=== PATIENT | female | born 1935 | race Caucasian/White ===

== ENCOUNTER 2019-01-08 02:36 | Outpatient (CLI) | payer MEDICARE, OTHER, SELFPAY ==
[2019-01-08 09:11] LABS: HCT 42.4 % (36.0-46.0); HGB 14.5 g/dL (12.0-15.5); Mean Corp. HGB Concentration 34.2 g/dL (32.0-36.0); Mean Corpuscular Hemoglobin 32.3 pg (27.0-33.0); Mean Corpuscular Volume 94.4 fL (80-95); Mean Platelet Volume 10.2 fL (8.0-11.0); Platelet Count 221 x1000/uL (130-400); RBC 4.49 m/cumm (4.00-5.20); RBC Distribution Width 13.1 % (11.7-14.6); White Blood Cell Count 5.66 k/cumm (4.4-10.8)
[2019-01-08 10:17] LABS: ALT 35 U/L (12-78); AST 30 U/L (15-37); Alkaline Phosphatase 66 U/L (46-116); Anion Gap 7.8 mmol/L (3-11); BUN 15 mg/dL (7-18); Bilirubin, Total 0.5 mg/dL (0.2-1.0); CO2 30.2 mmol/L (21.0-32.0); CREATININE 0.81 mg/dL (0.55-1.02); Calcium 9.5 mg/dL (8.5-10.1); Chloride 99 mmol/L (98-107); Cholesterol 231 mg/dL (50-200); Glucose 99 mg/dL (70-100); HDL Cholesterol 62 mg/dL (40-60); LDL CHOLESTEROL 134 mg/dL (<100); Potassium 4.3 mmol/L (3.5-5.1); Sodium 137 mmol/L (136-145); Total Protein 6.6 g/dL (6.4-8.2); Triglyceride 203 mg/dL (30-150)
== END 2019-01-08 02:56 ==
PROVIDERS: PCP Student in an Organized Health Care Education/Training Program; Visit Provider Nurse Practitioner Gerontology
DX: E78.5 Hyperlipidemia, unspecified (principal); I10 Essential (primary) hypertension; K63.5 Polyp of colon
CPT/HCPCS: 36415; 80053; 80061; 83721; 85027

== ENCOUNTER 2019-10-16 15:06 | Emergency (ER) | payer MEDICARE, OTHER, SELFPAY ==
[2019-10-16 15:10] VITALS: BP 167/62; PULSE 94; RESP 18; TEMP 36.6; O2SAT 99
--- NOTE | 2019-10-16 15:15 | W.ED.GENAD ---
Discharge Plan Disposition Patient Disposition: HOME Condition: Good Discharge Details Chief Complaint: Abd Prob Clinical Impression: Abdominal pain Primary Care Provider: Jasmine Lorenzana ED Provider: Jostin Mercado Home Meds and New Rx's Prescriptions: New sucralfate [Carafate] 1 gram tablet 1 gm PO QACHS Qty: 60 RF: 0 No Action lisinopril 20 mg tablet 20 mg PO DAILY Qty: 90 RF: 4 hydrochlorothiazide 25 mg tablet 25 mg PO DAILY Qty: 90 RF: 4 fluticasone propionate 50 mcg/actuation spray,suspension 1 - 2 spray NS DAILY PRN (Reason: nasal congestion) Qty: 1 RF: 0 multivitamin [Daily Multi-Vitamin] 1 EACH tablet 1 ea PO DAILY RF: 0 calcium carbonate-vitamin D3 [Calcium 600 with Vitamin D3] 1 EACH tablet 1 ea PO DAILY RF: 0 garlic 1,000 MG capsule 500 mg PO DAILY RF: 0 atorvastatin 20 mg tablet 20 mg PO DAILY Qty: 90 RF: 3 Lactobacillus rhamnosus GG 1 EACH capsule 1 ea PO DAILY RF: 0 Discharge Instructions Instructions: Abdominal Pain (ED) Additional Instructions: At this time there is no evidence of diverticulitis, gallbladder pathology or kidney pathology. You may have had a kidney stone that passed. You may also be suffering from mild stomach ulcer. Please take the Carafate as directed. Please avoid Aleve, and take Tylenol instead. You can take 500 mg every 6 hours up to a maximum dose of 1000 mg every 6 hours. If you notice any worsening of your symptoms, or any new symptoms such as vomiting, diarrhea, fever, chills, shortness of breath, chest pain, numbness, weakness, or fainting , please return immediately to the emergency department for reevaluation. Please follow up with your primary care provider as soon as possible for reassessment and reevaluation. As always, it was a pleasure participating in your medical care today. Referrals: Jasmine Lorenzana, RUSTY [Primary Care Provider] - Medical Decision Making This is a pleasant 84-year-old female who presents for left lower quadrant abdominal pain. Is been present for the last 6 months. It is sharp in nature. It comes and goes. No associated melena, hematochezia or acholic stool. She has had no vomiting and she is eating well. Physical exam demonstrates minimal left lower quadrant abdominal tenderness. No signs of an acute surgical abdomen at this time. Vital signs are stable. We will get a CT scan for further assessment, get basic labs and reassess. 5:47 PM Laboratory work-up is returned unremarkable, no white count, no left shift, electrolytes normal, renal function stable, lactate bilirubin and transaminases normal. Urinalysis shows evidence of a small amount of RBCs, no evidence of infection though. CT scan shows no evidence of diverticulitis, or renal stone. No evidence of ureteral stone either. No evidence of significant hydronephrosis. This may reflect a passed kidney stone. CT scan did show evidence of a small lesion in the liver which will need to be reimaged in the future. We will place this on the patient's problem list. Additionally there was evidence of questionable pericholecystic fat stranding which is inconsistent with acute cholecystitis per laboratory and clinical evaluation however out of an abundance of precaution ultrasound was ordered and demonstrates no evidence of acute process or cholecystitis. This time the patient feels notably comfortable. Will discharge home with recommendations for Tylenol and Carafate. Discussed the importance of close follow-up. I have extensively reviewed the treatment plan and discharge instructions with the patient and their family. I have addressed all patient concerns at this time. The patient and family was made aware of what symptoms to monitor for that would warrant a return to the emergency department. Discussed the plan with the patient and family, they demonstrate verbal understanding and agreement with our assessment and plan at this time. FINDINGS: Liver: Poorly defined 1.7 cm low-density lesion in the right hepatic lobe. Gallbladder and bile ducts: Tiny calcified gallstone and a decompressed gallbladder. Mild pericholecystic fat stranding. Pancreas: Unremarkable. No ductal dilation. Spleen: Unremarkable. Adrenals: Unremarkable. Kidneys and ureters: No hydronephrosis or stones. Stomach and bowel: Small bowel loops are unremarkable. Scattered colonic diverticulosis without evidence of diverticulitis. Appendix: No evidence of appendicitis. Intraperitoneal space: No pneumoperitoneum. No significant fluid collection. Vasculature: Atherosclerotic calcifications of the aorta and major branches. Lymph nodes: No enlarged lymph nodes. Bladder: Unremarkable. Reproductive: Unremarkable as visualized. Bones/joints: Multilevel degenerative changes of the visualized spine. No acute osseous lesion or fracture. Soft tissues: Small fat containing left inguinal hernia. IMPRESSION: 1. Scattered colonic diverticulosis without evidence of diverticulitis. 2. Tiny calcified gallstone and a decompressed gallbladder. Mild pericholecystic fat stranding. Correlate clinically with LFTs to exclude possibility of acute cholecystitis. 3. Scattered colonic diverticulosis without evidence of diverticulitis. 4. Poorly defined 1.7 cm low-density lesion in the right hepatic lobe. Recommend followup nonemergent dedicated CT or MRI abdomen using liver mass protocol. 5. Other chronic findings, as above. Thank you for allowing us to participate in the care of your patient. Dictated and Authenticated by: Candelario Whitfield MD 10/16/2019 4:44 PM Eastern Time ([place] & [place]) FINDINGS: Liver: Visualized portions of the liver are unremarkable. Gallbladder: No gallstones visualized on this examination. No gallbladder wall thickening. Sonographic Nowak's sign is negative. Common bile duct: The common bile duct measures up to 0.3 cm in diameter. Pancreas: Not visualized. Right kidney: Not visualized. IMPRESSION: No acute findings. Thank you for allowing us to participate in the care of your patient. Dictated and Authenticated by: Candelario Whitfield MD 10/16/2019 5:24 PM Eastern Time ([place] & [place]) HPI General Date/Time Provider Initiated Documentation: 10/16/19 15:07. HPI Narrative: This is a pleasant 84-year-old female who presents today for mild abdominal pain. Patient states that for the last 6 months she has had on and off pain present in the left lower quadrant. She denies any nausea or vomiting. She does occasionally have some loose stools, but this is very mild. She describes the pain is sharp when it does occur. She has no associated urinary complaints. She denies any vomiting. She denies any hematochezia, melena, acholic stool. No other complaints at this time. No other modifying factors. Related Data Home Medications Medication Instructions Recorded Confirmed Lactobacillus rhamnosus GG 1 ea PO DAILY 01/28/13 10/16/19 calcium carbonate-vitamin D3 1 ea PO DAILY 11/25/13 10/16/19 [Calcium 600 with Vitamin D3] multivitamin [Daily Multi-Vitamin] 1 ea PO DAILY 11/25/13 10/16/19 garlic 500 mg PO DAILY 08/27/14 10/16/19 fluticasone propionate 50 1 - 2 spray NS DAILY PRN #1 unit 12/06/18 10/16/19 mcg/actuation nasal spray,suspension hydrochlorothiazide 25 mg tablet 25 mg PO DAILY #90 tab-cap 01/17/19 10/16/19 lisinopril 20 mg tablet 20 mg PO DAILY #90 tab-cap 01/17/19 10/16/19 atorvastatin 20 mg tablet 20 mg PO DAILY #90 tab 01/21/19 10/16/19 sucralfate [Carafate] 1 gm PO QACHS #60 tab 10/16/19 Previous Rx's Medication Instructions Recorded fluticasone propionate 50 1 - 2 spray NS DAILY PRN #1 unit 12/06/18 mcg/actuation nasal spray,suspension hydrochlorothiazide 25 mg tablet 25 mg PO DAILY #90 tab-cap 01/17/19 lisinopril 20 mg tablet 20 mg PO DAILY #90 tab-cap 01/17/19 atorvastatin 20 mg tablet 20 mg PO DAILY #90 tab 01/21/19 sucralfate [Carafate] 1 gm PO QACHS #60 tab 10/16/19 Allergies Allergy/AdvReac Type Severity Reaction Status Date / Time Sulfa (Sulfonamide Allergy Severe RASH ALL Verified 10/16/19 15:16 Antibiotics) OVER BODY General Stated Complaint: Abd Prob KIRSTEN: 3 Review of Systems All systems reviewed & are unremarkable except as noted in HPI and below PFSH Social History (Updated 01/17/19 @ 08:33 by Jane Zelaya LPN) Smoking/Tobacco Use Status: Never Alcohol Intake: never Drug use: Never Substance use type: does not use Household members: spouse Housing: house Number of Children: 0 current occupation: [employer] Pets and animals: No What type of physical activity do you participate in: walking Duration: 45-60 minutes/day Frequency: daily Summer/Islam: Lutheran Special summer needs: No Working smoke detector in home: Yes Fire extinguisher in home: Yes Carbon monox detector in home: Yes Do you feel safe at home: Yes Do you feel safe in your relationship?: Yes Exam Narrative Exam Narrative: 1.Const: Well-nourished, Well-developed, appearing stated age 2.Eyes: PERRL, no conjunctival injection, and symmetrical lids. 3.ENT: Atraumatic external nose and ears. Moist MM. Neck: Symmetric, trachea midline, No thyromegaly. 4.CVS: +S1/S2, No murmurs or gallops. Peripheral pulses 2+ and equal in all extremities. Brisk capillary refill in all extremities. 5.RESP: Unlabored respiratory effort. Clear to auscultation bilaterally. No wheezes rales or rhonchi 6.GI: Soft, Nondistended, No hepatosplenomegaly. No guarding or rebound. Questionable mild tenderness in the left lower quadrant of the abdomen. No pain in the right lower quadrant. No evidence of an acute surgical abdomen. 7.MSK: Normocephalic/Atraumatic, Extremities w/o deformity or ttp No cyanosis or clubbing, Normal movement of all extremities 8.Skin: Warm, Dry. No rashes or lesions. 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 Sensation grossly intact, no focal neurologic deficits. 10.Psych: (AAO) x3. Appropriate mood and affect Course Vital Signs Vital signs: Vital Signs Temperature 36.6 C 10/16/19 15:10 Pulse 94 H 10/16/19 15:10 Respiratory Rate 18 10/16/19 15:10 Blood Pressure 167/62 H 10/16/19 15:10 Pulse Oximetry 99 10/16/19 15:10 Temperature 36.6 C 10/16/19 15:10 Temperature Source Skin 10/16/19 15:10 Pulse 94 H 10/16/19 15:10 Respiratory Rate 18 10/16/19 15:10 Blood Pressure 167/62 H 10/16/19 15:10 Blood Pressure Position Sitting 10/16/19 15:10 Pulse Oximetry 99 10/16/19 15:10 Oxygen Delivery Method Room Air 10/16/19 15:10 Oxygen Flow Rate 0 10/16/19 15:10 Pain Level 8 10/16/19 15:10
[2019-10-16] MEDS: Normal Saline 500 ML IV (15:37)
[2019-10-16 15:58] LABS: Abs Immature Grans 0.02 k/cumm (0.0-0.09); Absolute Basophil Count 0.01 k/cumm (0.0-0.2); Absolute Eosinophil Count 0.14 k/cumm (0.0-0.7); Absolute Lymphocyte Count 1.19 k/cumm (1.2-3.4); Absolute Monocyte Count 0.48 k/cumm (0.11-0.7); Absolute Neutrophil Count 6.18 k/cumm (1.2-6.7); Basophils % 0.1; Eosinophils % 1.7; HCT 37.3 % (36.0-46.0); Immature Grans % 0.2; Lymphocytes % 14.8; Mean Corp. HGB Concentration 32.2 g/dL (32.0-36.0); Mean Corpuscular Hemoglobin 29.4 pg (27.0-33.0); Mean Corpuscular Volume 91.4 fL (80-95); Mean Platelet Volume 9.5 fL (8.0-11.0); Neutrophils % 77.2; Platelet Count 343 x1000/uL (130-400); RBC 4.08 m/cumm (4.00-5.20); RBC Distribution Width 13.2 % (11.7-14.6); White Blood Cell Count 8.02 k/cumm (4.4-10.8)
[2019-10-16 16:02] LABS: ALT 27 U/L (14-59); AST 26 U/L (15-37); Albumin 2.9 g/dL (3.4-5.0); Alkaline Phosphatase 89 U/L (46-116); Anion Gap 9.3 mmol/L (3-11); BUN 14 mg/dL (7-18); Bilirubin, Total 0.3 mg/dL (0.2-1.0); CO2 27.7 mmol/L (21.0-32.0); CREATININE 0.94 mg/dL (0.55-1.02); Calcium 8.8 mg/dL (8.5-10.1); Chloride 97 mmol/L (98-107); Estimated GFR 57.01 (mL/min/1.73m2); Glucose 104 mg/dL (74-106); Potassium 3.8 mmol/L (3.5-5.1); Sodium 134 mmol/L (136-145); Total Protein 6.3 g/dL (6.4-8.2)
--- NOTE | 2019-10-16 16:09 | DI.CT_ITS ---
EXAM: CT ABDOMEN PELVIS WO CLINICAL HISTORY: LLQ abdominal pain, r/o diverticulitis TECHNIQUE: Imaging Protocol: Axial computed tomography images with coronal and sagittal reformatted images were created and reviewed. COMPARISON: No exams were available for comparison FINDINGS: ABDOMEN: Lung Bases: Dependent atelectatic changes are seen in the lung bases. Liver: Normal density. There is an ill-defined 1.7 centimeter hypodense lesion in the posterior segme nt of the right lobe of the liver. Gallbladder and biliary tract: Cholelithiasis. The gallbladder is contracted. Mild stranding is see n in the surrounding soft tissues. Pancreas: Normal density, no abnormal calcifications or inflammatory process. Spleen: Normal. Kidneys: Normal size, contour and axis. No radiodense stones or obstructive uropathy. No masses seen. Adrenal glands: No masses seen. Lymph nodes: Within normal limits. Abdominal Aorta: Atherosclerosis. No evidence of aneurysm. PELVIS: Bladder: Symmetric distention, no gross wall thickening. There are 2 calcifications seen in the regio n of the right uterovesical junction within the urinary bladder. These may represent 2 passed stones . There is also question of a soft tissue nodule in the region of the right ureteral vesicular junct ion in the urinary bladder. Bowel: There is diverticulosis of the colon but no evidence of acute diverticulitis. There is a norm al appendix present. There is a small to moderate amount of retained stool throughout the colon. Th ere is no evidence of bowel obstruction. Peritoneal cavity: No ascites, collection or mesenteric inflammatory response. Reproductive organs: Within normal limits. Bones: Degenerative changes are seen in the spine. IMPRESSION: 1. Cholelithiasis. Mild pericholecystic fat stranding. Please correlate with clinical findings to e xclude possibility of acute cholecystitis. 2. Colonic diverticulosis but no evidence of acute diverticulitis. 3. Tiny calcifications in the urinary bladder which may represent bladder stones. No hydronephrosis. 4. Poorly defined 1.7 centimeter low-density lesion in the right lobe of the liver. Dedicated CT sca n or MRI of the abdomen is recommended for follow-up. 5. Question of a soft tissue mass in the right aspect of the urinary bladder. Follow-up as clinicall y appropriate. DATA REPOSITORY: All CT scans at this facility are submitted to the National Radiology Data Registry (NRDR) Dose Index Registry (DIR) with the [employer] (ACR). RADIATION OPTIMIZATION: All CT scans at this facility use at least one of these dose optimization te chniques: automated exposure control; mA and/or kV adjustment per patient size (includes targeted exa ms where dose is matched to clinical indication); or iterative reconstruction.
[2019-10-16 16:36] VITALS: BP 154/67; PULSE 78; RESP 19; O2SAT 98
[2019-10-16 16:38] LABS: Bilirubin Negative (Negative); Blood Small (Negative); Clarity Clear (Clear); Glucose Negative (Negative); Ketones Negative (Negative); Leukocyte Esterase Negative (Negative); Nitrite Negative (Negative); Specific Gravity 1.015 (1.005-1.025); Urobilinogen 0.2 EU/dL (Up TO 0.2); pH 8.5 (5-8)
--- NOTE | 2019-10-16 16:46 | DI.VRAD_ITS ---
PROCEDURE INFORMATION: Exam: CT Abdomen And Pelvis Without Contrast Exam date and time: 10/16/2019 3:16 PM Age: 84 years old Clinical history: Other: Llq pain TECHNIQUE: Imaging protocol: Computed tomography of the abdomen and pelvis without contrast. Radiation optimization: All CT scans at this facility use at least one of these dose optimization techniques: automated exposure control; mA and/or kV adjustment per patient size (includes targeted exams where dose is matched to clinical indication); or iterative reconstruction. COMPARISON: No relevant prior studies available. FINDINGS: Liver: Poorly defined 1.7 cm low-density lesion in the right hepatic lobe. Gallbladder and bile ducts: Tiny calcified gallstone and a decompressed gallbladder. Mild pericholecystic fat stranding. Pancreas: Unremarkable. No ductal dilation. Spleen: Unremarkable. Adrenals: Unremarkable. Kidneys and ureters: No hydronephrosis or stones. Stomach and bowel: Small bowel loops are unremarkable. Scattered colonic diverticulosis without evidence of diverticulitis. Appendix: No evidence of appendicitis. Intraperitoneal space: No pneumoperitoneum. No significant fluid collection. Vasculature: Atherosclerotic calcifications of the aorta and major branches. Lymph nodes: No enlarged lymph nodes. Bladder: Unremarkable. Reproductive: Unremarkable as visualized. Bones/joints: Multilevel degenerative changes of the visualized spine. No acute osseous lesion or fracture. Soft tissues: Small fat containing left inguinal hernia. IMPRESSION: 1. Scattered colonic diverticulosis without evidence of diverticulitis. 2. Tiny calcified gallstone and a decompressed gallbladder. Mild pericholecystic fat stranding. Correlate clinically with LFTs to exclude possibility of acute cholecystitis. 3. Scattered colonic diverticulosis without evidence of diverticulitis. 4. Poorly defined 1.7 cm low-density lesion in the right hepatic lobe. Recommend followup nonemergent dedicated CT or MRI abdomen using liver mass protocol. 5. Other chronic findings, as above. Dictated and Authenticated by: Candelario Whitfield MD. Ordering:RUBI Frankel MD
[2019-10-16 16:53] LABS: Bacteria Negative HPF (Negative); Casts Negative LPF (Negative); Crystals Few Amorphous HPF (Negative); Epithelial Cells Negative HPF (Negative); Mucus Trace (Negative); Other Cells Negative (Negative); WBC 0-2 HPF (0-5)
[2019-10-16 16:54] LABS: C & S Indicated? No
--- NOTE | 2019-10-16 16:56 | DI.US_ITS ---
EXAM: US ABDOMEN LIMITED CLINICAL HISTORY: ruq pain, eval GB TECHNIQUE: Ultrasound performed using standard protocol. COMPARISON: CT ABDOMEN PELVIS WO from 10/16/2019 FINDINGS: There is no gallbladder wall thickening, sludge or pericholecystic fluid. No gallstones are identifi ed. There is a negative sonographic Nowak sign. The common duct is within normal limits at 3 rm meters. The visualized portions of the liver are unremarkable. IMPRESSION: Negative gallbladder ultrasound. No previous for comparison.
--- NOTE | 2019-10-16 17:24 | DI.VRAD_ITS ---
PROCEDURE INFORMATION: Exam: US Abdomen Limited, Right Upper Quadrant Exam date and time: 10/16/2019 5:09 PM Age: 84 years old Clinical history: Abdominal pain; Localized; Right upper quadrant (ruq) TECHNIQUE: Imaging protocol: Real-time ultrasound of the abdomen with image documentation. Examination was focused on the right upper quadrant. COMPARISON: CT ABDOMEN PELVIS WO 10/16/2019 4:09 PM FINDINGS: Liver: Visualized portions of the liver are unremarkable. Gallbladder: No gallstones visualized on this examination. No gallbladder wall thickening. Sonographic Nowak's sign is negative. Common bile duct: The common bile duct measures up to 0.3 cm in diameter. Pancreas: Not visualized. Right kidney: Not visualized. IMPRESSION: No acute findings. Dictated and Authenticated by: Candelario Whitfield MD. Ordering:RUBI Frankel MD
[2019-10-16 17:55] VITALS: BP 133/58; PULSE 78; RESP 18; TEMP 36.9; O2SAT 99
== END 2019-10-16 18:07 | disposition home or self-care (01) ==
PROVIDERS: Emergency Provider Student in an Organized Health Care Education/Training Program; PCP Nurse Practitioner
DX: R10.32 Left lower quadrant pain (principal); R93.2 Abnormal findings on diagnostic imaging of liver and biliary tract
CPT/HCPCS: 36415; 80053; 96361; 96374; 99284; 74176; 76705; 81003; 81015; 83605; 85025

== ENCOUNTER 2019-11-07 03:08 | Outpatient (CLI) | payer MEDICARE, OTHER, SELFPAY ==
--- NOTE | 2019-11-07 10:00 | DI.MRI_ITS ---
EXAM: MR ABDOMEN WO/W CLINICAL HISTORY: 1.7 cm liver lesion, ? mass adjacent to bladder, [id number] CT of abdomen. TECHNIQUE: Multiplanar multisequence MRI was performed. COMPARISON: ABDOMEN AND PELVIC CT 10/16/19 FINDINGS: MR examination of the abdomen was performed according to the usual protocol including multiphasic pos t contrast imaging. Recent CT showed a hypodense 17 millimeter posterior segment right hepatic lobe lesion. Noncontrast imaging shows an approximately 21 x 12 x 12 millimeter in diameter lesion in the posterio r segment of the right hepatic lobe. No additional hepatic lesion identified. No splenic lesion see n. The pancreas appears normal. No biliary dilatation seen. No gross retroperitoneal adenopathy. Abdominal aorta is of normal diameter. Incidental 15 millimeter in diameter inferior pole renal cyst noted, otherwise kidneys and adrenals unremarkable in appearance. The posterior right lobe hepatic lesion shows mildly heterogeneous hyperintense signal on T2 weighted imaging and mildly hypointense signal on T1 weighted imaging. Arterial phase contrast enhanced imagi ng shows minimal peripheral enhancement. Venous phase shows slightly more intense peripheral enhancem ent. 3 minutes and 5 minutes delayed imaging show homogeneous lesional enhancement with no washout. Findings as described are nonspecific but could be seen in intrahepatic cholangiocarcinoma or mixed h epatocellular/cholangiocarcinoma. The finding show poor concordance with possible benign etiologies i ncluding atypical hemangioma or focal nodular hyperplasia. Tissue sampling should be considered due t o the possibility of malignancy.
[2019-11-07 10:13] LABS: Calculated LDL 136 mg/dL; Cholesterol 229 mg/dL (<200); HDL Cholesterol 52 mg/dL (40-60); Triglyceride 207 mg/dL (<150)
[2019-11-07] MEDS: Gadoterate meglumine 20 ML VIAL 14 ML IVP (10:18)
[2019-11-07] MEDS: Normal Saline Flush 10 ML SYR IVP (10:19)
== END 2019-11-07 03:28 ==
PROVIDERS: PCP Nurse Practitioner; Visit Provider Nurse Practitioner
DX: K76.89 Other specified diseases of liver (principal); N28.1 Cyst of kidney, acquired; R93.5 Abnormal findings on diagnostic imaging of other abdominal regions, including retroperitoneum; E78.5 Hyperlipidemia, unspecified
CPT/HCPCS: 36415; 74183; 80061

== ENCOUNTER 2020-01-08 10:42 | Outpatient (REF) | payer MEDICARE, OTHER, SELFPAY | END 2020-01-08 11:02 | LOC: LBN 10:42 | PROVIDERS: PCP Nurse Practitioner; Visit Provider Nurse Practitioner | DX: R35.1 Nocturia (principal) | CPT/HCPCS: 87086 ==

== ENCOUNTER → 2020-04-14 10:17 | Outpatient (BNVA) | payer MEDICARE, OTHER, SELFPAY | PROVIDERS: PCP Nurse Practitioner; Referring Provider Nurse Practitioner; Visit Provider Nurse Practitioner Gerontology | DX: R35.0 Frequency of micturition (principal); R35.1 Nocturia; I10 Essential (primary) hypertension | CPT/HCPCS: 81003; 99204; 99215 ==

== ENCOUNTER 2021-02-09 07:32 | Outpatient (CLI) | payer MEDICARE, OTHER, SELFPAY ==
[2021-02-09 11:25] LABS: ALT 29 U/L (14-59); AST 21 U/L (15-37); Albumin 4.2 g/dL (3.4-5.0); Alkaline Phosphatase 56 U/L (46-116); Anion Gap 8.4 mmol/L (3-11); BUN 16 mg/dL (7-18); Bilirubin, Total 0.5 mg/dL (0.2-1.0); CO2 28.6 mmol/L (21.0-32.0); CREATININE 0.9 mg/dL (0.55-1.02); Calcium 9.6 mg/dL (8.5-10.1); Chloride 99 mmol/L (98-107); Glucose 101 mg/dL (74-106); Potassium 4.2 mmol/L (3.5-5.1); Sodium 136 mmol/L (136-145); Total Protein 6.5 g/dL (6.4-8.2)
[2021-02-09 11:42] LABS: Calculated LDL 126 mg/dL (<100); Cholesterol 232 mg/dL (<200); HDL Cholesterol 65 mg/dL (40-60); Triglyceride 207 mg/dL (<150)
== END 2021-02-09 07:33 | disposition home or self-care (01) ==
LOC: LBO 07:43
PROVIDERS: PCP Nurse Practitioner; Visit Provider Nurse Practitioner
DX: E78.5 Hyperlipidemia, unspecified (principal); I10 Essential (primary) hypertension
CPT/HCPCS: 36415; 80053; 80061

== ENCOUNTER 2021-02-10 00:51 | Outpatient (CLI) | payer MEDICARE, OTHER, SELFPAY ==
--- NOTE | 2021-02-10 06:45 | DI.MAMMO_ITS ---
EXAM: MAMMO SCREENING CLINICAL HISTORY: screening,Z12.39 TECHNIQUE: Mammograms were interpreted according to the usual protocol including computer analysis w WT[employer] CAD system, tomosynthesis and C-view imaging. COMPARISON: 2011 through 2017 FINDINGS: The breasts are composed of scattered fibroglandular densities, Breast Density category B. There is motion on the the left MLO view. The patient should return error for a repeat left MLO view at no additional charge. No suspicious masses or suspicious microcalcifications are seen. No skin thickening or abnormal axillary lymph nodes are seen. There has been no significant change from prior exams. IMPRESSION: BI-RADS Category 0 - Assessment Incomplete: Need additional imaging evaluation. The patient should re turn for repeat left MLO view due to motion. Breast Density - Category B, scattered fibroglandular densities. A negative radiographic report should not delay biopsy if a dominant or clinically suspicious mass is present. Up to ten percent of cancers are not identified on mammography. A negative report may reinforce clinical impression. Adenosis and dense breasts may obscure an underlying neoplasm. False positive reports average 6 to 10%. Patient will receive a letter notifying them of these results.
== END 2021-02-10 01:11 ==
PROVIDERS: PCP Nurse Practitioner; Visit Provider Nurse Practitioner
DX: Z12.31 Encounter for screening mammogram for malignant neoplasm of breast (principal)
CPT/HCPCS: 77063; 77067

== ENCOUNTER 2021-02-10 14:13 | Outpatient (CLI) | payer MEDICARE, OTHER, SELFPAY ==
--- NOTE | 2021-02-10 14:00 | RT.EKG_ITS ---
APPROVED REPORT Exam: Resting ECG Patient Location: O HR:78 bpm ECG Measurements Heart Rate 78 AXIS WA 156 P 55 QRSd 91 QRS 32 QT 368 T 41 QTc 419 Conclusion Sinus rhythm...normal P axis, V-rate 60- 99 Ventricular trigeminy...trigeminy string>6 w/ V complexes Probable left atrial enlargement...P >50mS, <-0.10mV V1
== END 2021-02-10 14:14 | disposition home or self-care (01) ==
LOC: DI.KIM 14:14
PROVIDERS: PCP Nurse Practitioner; Visit Provider Nurse Practitioner Family
DX: I49.9 Cardiac arrhythmia, unspecified (principal)
CPT/HCPCS: 93010

== ENCOUNTER 2021-02-15 03:49 | Outpatient (CLI) | payer MEDICARE, OTHER, SELFPAY ==
[2021-02-15 10:02] LABS: TSH (W/Ref FT4) 1.47 uIU/mL (0.36-3.74)
== END 2021-02-15 03:50 | disposition home or self-care (01) ==
LOC: LBO 03:49
PROVIDERS: PCP Nurse Practitioner; Visit Provider Nurse Practitioner
DX: I49.9 Cardiac arrhythmia, unspecified (principal)
CPT/HCPCS: 36415; 84443; 93225

== ENCOUNTER 2021-02-15 04:01 | Outpatient (RCR) | payer MEDICARE, OTHER, SELFPAY ==
--- NOTE | 2021-02-15 15:15 | HOLTER_ITS ---
APPROVED REPORT Exam Type: HOLTER MONITOR APPLICATION Reason for Test: PVC's Patient Location: O Conclusion 48-hour Holter monitor was ordered for premature ventricular contractions Predominant rhythm was sinus with an average heart rate of 79. Minimum was 60, maximum 135 There were very rare isolated ventricular ectopic beats, a total of 88 in 48 hours There were very rare isolated atrial premature beats, 9 in 48 hours. There was one atrial pair There was no atrial fibrillation, no pauses greater than 3 seconds, no high-grade AV block No patient symptoms were reported
== END 2021-03-04 23:59 | disposition home or self-care (01) ==
LOC: RT 04:01
PROVIDERS: PCP Nurse Practitioner; Visit Provider Nurse Practitioner Family
DX: I49.3 Ventricular premature depolarization (principal)
CPT/HCPCS: 93227; 93225; 93226

== ENCOUNTER → 2021-05-19 08:23 | Outpatient (BNVA) | payer MEDICARE, OTHER, SELFPAY | PROVIDERS: PCP Nurse Practitioner; Referring Provider Nurse Practitioner; Visit Provider Nurse Practitioner Gerontology | DX: R35.0 Frequency of micturition (principal); R31.9 Hematuria, unspecified | CPT/HCPCS: 81003; 99214 ==

== ENCOUNTER 2021-05-19 14:46 | Outpatient (REF) | payer MEDICARE, OTHER, SELFPAY | END 2021-05-19 14:47 | disposition home or self-care (01) | LOC: LBN 14:46 | PROVIDERS: PCP Nurse Practitioner; Visit Provider Nurse Practitioner Gerontology | DX: R31.9 Hematuria, unspecified (principal); R35.0 Frequency of micturition | CPT/HCPCS: 87086 ==

== ENCOUNTER → 2021-06-09 08:17 | Outpatient (BNVA) | payer MEDICARE, OTHER, SELFPAY | PROVIDERS: PCP Nurse Practitioner; Visit Provider Nurse Practitioner Gerontology | DX: R35.0 Frequency of micturition (principal); R31.9 Hematuria, unspecified; Z77.22 Contact with and (suspected) exposure to environmental tobacco smoke (acute) (chronic); R39.15 Urgency of urination | CPT/HCPCS: 81003; 99214 ==

== ENCOUNTER 2021-06-14 01:37 | Outpatient (CLI) | payer MEDICARE, OTHER, SELFPAY ==
--- NOTE | 2021-06-14 07:00 | DI.CT_ITS ---
Exam(s) CT ABDOMEN PELVIS WO/W EXAM: CT ABDOMEN PELVIS WO/W TECHNIQUE: Imaging Protocol: Axial computed tomography images with coronal and sagittal reformatted images were created and reviewed CONTRAST MATERIAL: Intravenous: Omnipaque 350 Contrast volume:structured data in ml Contrast route:I V - Oral:yes / no COMPARISON: CT CT ABDOMEN PELVIS WO from 10/16/[address] ABDOMEN PELVIS WO from 10/16/2019 MR MR ABDOMEN WO/W from 11/07/2019 MR MR ABDOMEN WO/W from 11/07/2019 FINDINGS: ABDOMEN: Lung Bases: Normal where visualized. Coronary artery calcifications. Liver: Normal density. Stable 12 millimeter hypervascular lesion posterior right lobe. Gallbladder and biliary tract: No radiodense calculus or dilation. Pancreas: Normal density, no abnormal calcifications or inflammatory process. Spleen: Normal. Kidneys: Normal size, contour and axis. No radiodense stones or obstructive uropathy. No masses seen. A small cyst upper pole right kidney. Adrenal glands: No masses seen. Lymph nodes: Within normal limits. Abdominal Aorta: Abdominal portion non-dilated. Moderate atherosclerotic changes. PELVIS: Bladder: Interval increase in size peripherally calcified bladder mass, now measuring 2.6 cm urinary bladder nearly empty. No calculi. Bowel: No obstruction or bowel wall thickening. Normal appendix. Peritoneal cavity: No ascites, collection or mesenteric inflammatory response. Bones: Within normal limits for age.. Reproductive organs: Status post hysterectomy. IMPRESSION: Interval increase in size bladder mass, measuring 2.6 cm. No renal masses. No urinary tract calculi . Stable vascular liver lesion. RADIATION DOSE DELIVERED: Total DLP DATA REPOSITORY: All CT scans at this facility are submitted to the National Radiology Data Registry (NRDR) Dose Index Registry (DIR) with the [employer] (ACR). RADIATION OPTIMIZATION: All CT scans at this facility use at least one of these dose optimization te chniques: automated exposure control; mA and/or kV adjustment per patient size (includes targeted exa ms where dose is matched to clinical indication); or iterative reconstruction.
[2021-06-14 08:39] LABS: Estimated GFR 52.82 (mL/min/1.73m2)
[2021-06-14] MEDS: Omnipaque 350 MG/ML 100 ML BTL IJ (09:02)
[2021-06-14] MEDS: Normal Saline - Diluent 50 ML VIAL IV (09:02)
[2021-06-14] MEDS: Normal Saline Flush 10 ML SYR IVP (09:03)
== END 2021-06-14 01:57 ==
PROVIDERS: PCP Nurse Practitioner; Visit Provider Nurse Practitioner Gerontology
DX: R31.9 Hematuria, unspecified (principal); K76.9 Liver disease, unspecified
CPT/HCPCS: 74178; 82565; J3490

== ENCOUNTER → 2021-06-23 08:50 | Outpatient (BNVA) | payer MEDICARE, OTHER, SELFPAY | PROVIDERS: PCP Nurse Practitioner; Referring Provider Nurse Practitioner; Visit Provider Nurse Practitioner Gerontology | DX: N32.89 Other specified disorders of bladder (principal); R31.9 Hematuria, unspecified | CPT/HCPCS: 99214 ==

== ENCOUNTER 2021-06-24 03:31 | Outpatient (CLI) | payer MEDICARE, OTHER, SELFPAY ==
[2021-06-24 15:26] LABS: Source Nasal/Nares
[2021-06-24 17:59] LABS: COVID-19 PCR Negative (Negative)
== END 2021-06-24 03:32 | disposition home or self-care (01) ==
LOC: LBO 03:31
PROVIDERS: PCP Nurse Practitioner; Visit Provider Urology
DX: Z20.822 Contact with and (suspected) exposure to COVID-19 (principal); Z01.818 Encounter for other preprocedural examination
CPT/HCPCS: 87635

== ENCOUNTER 2021-06-27 10:02 | Day surgery (SDC) | payer MEDICARE, OTHER, SELFPAY ==
[2021-06-27 11:00] VITALS: BP 136/84; PULSE 75; RESP 18; TEMP 36.4; O2SAT 98
[2021-06-27] MEDS: Lactated Ringers 1,000 ML 80 ML IV (11:48)
--- NOTE | 2021-06-27 12:07 | W.PM.HP.N ---
Date of service: 06/27/21 Time of Service: 12:07 Assessment and Plan Assessment and plan (1) Hematuria: Status: Acute (2) Bladder mass: Status: Acute Assessment and plan: For cystoscopy with TURBT History of Present Illness History of Present Illness Chief Complaint: Hematuria Narrative: This is an 86 year old woman who has seen gross hematuria. She has urinary frequency and dysuria. She has been evaluated with a CT urogram which demonstrated a mass within the bladder. She presents for TURBT. Review of Systems Narrative: No fevers or chills Decreased hearing acuity. No vision change or dysphasia No diabetes or thyroid dysfunction No shortness of breath, cough or hemoptysis No chest pain or palpitations No nausea, vomiting, hepatitis, ulcers, jaundice, diarrhea or constipation No seizures, strokes or peripheral neuropathy No bleeding disorders or anemia No gout PFSH Medical History Abnormal MRI, liver Actinic keratosis, hx of Colon polyps Conductive hearing loss, unilateral (03/12/14) Essential hypertension (11/10/13) Ganglion cyst of wrist Generalized osteoarthrosis DJD 1st MCP joint right hand hip and knee pain Hearing loss Hemorrhoid Hip pain (10/04/95) History of serous otitis media Hyperlipidemia Hyperlipidemia Hypertension Osteoarthritis Polyp of colon (02/07/13) DR. KEYANA CERVANTES; TUBULAR ADENOMA family h/o colon ca PVCs (premature ventricular contractions) Sensorineural hearing loss, unilateral (10/26/16) Surgical History Colonoscopy - IV Sedation 2006; NEG 2012; TUBULAR ADENOMA Colonoscopy - MAC (02/05/18) Hemorrhoidal Banding (02/05/18) Hysterectomy, Laproscopic (~1977) Family History Mother , OLD AGE at age 82. Heart disease Father , OLD AGE at age 84. Heart disease Sister Neoplasm KIDNEY Sister Neoplasm COLON Sister No problems noted. Sister Essential hypertension Neoplasm Sister Hyperlipidemia Sister Hyperlipidemia Brother Acute type B viral hepatitis Essential hypertension Brother , ACCIDENTAL at age 13. No problems noted. Brother , SUICIDE at age 70. Depression Sister Diabetes Social History (Reviewed 05/03/21 @ 15:29 by CATARINO Key Smoking/Tobacco Use Status: Never Smoking risk assessment performed?: Yes Alcohol Intake: never Drug use: Never Substance use type: does not use Household members: spouse Housing: house Number of Children: 0 current occupation: [employer] Pets and animals: No What type of physical activity do you participate in: walking Duration: 45-60 minutes/day Frequency: daily Summer/Adventism: Holiness Special summer needs: No Working smoke detector in home: Yes Fire extinguisher in home: Yes Carbon monox detector in home: Yes Additional Social history: Unable to assess [employer] Meds Allergies and Home Medications Allergies Allergy/AdvReac Type Severity Reaction Status Date / Time Sulfa (Sulfonamide Allergy Severe RASH ALL Verified 06/27/21 11:10 Antibiotics) OVER BODY Home Medications Medication Instructions Recorded Confirmed Type Lactobacillus rhamnosus GG 1 ea PO DAILY 01/28/13 06/27/21 History calcium carbonate-vitamin D3 1 ea PO DAILY 11/25/13 06/27/21 History [Calcium 600 with Vitamin D3] multivitamin [Daily Multi-Vitamin] 1 ea PO DAILY 11/25/13 06/27/21 History garlic 500 mg PO DAILY 08/27/14 06/27/21 History psyllium seed (sugar) oral powder 1 tsp PO DAILY gm 10/28/19 06/23/21 History acetaminophen 500 mg capsule 500 mg PO QAM cap 02/08/21 06/23/21 History hydrochlorothiazide 25 mg tablet 25 mg PO DAILY #90 tab-cap 02/08/21 06/23/21 Rx incontinence pad, liner, disp #100 ea 02/08/21 06/23/21 Rx lisinopril 20 mg tablet 20 mg PO DAILY #90 tab-cap 02/08/21 06/27/21 Rx simvastatin 40 mg tablet 40 mg PO HS #90 tab-cap 02/08/21 06/27/21 Rx amlodipine 2.5 mg tablet 2.5 mg PO BID #90 tab 05/03/21 06/27/21 Rx Exam Const General: cooperative and no acute distress Neck Neck: supple Resp Effort & Inspection: normal respiratory effort Auscultation: clear to auscultation bilaterally Cardio Rate: regular rate GI Palpation: soft and no masses Neuro General: patient alert and patient awake Results Last Vital Signs Temp 36.4 C L 06/27/21 11:00 Pulse 75 06/27/21 11:00 Resp 18 06/27/21 11:00 BP 136/84 06/27/21 11:00 Pulse Ox 98 06/27/21 11:00
--- NOTE | 2021-06-27 13:45 | W.ANESPRE ---
General Info Date of Service Date Performed: 06/27/21 Height: 5 ft 2 in Weight: 68.6 kg Body Mass Index (BMI): 27.6 Surgical Procedure: Operation Date: 06/27/21 12:40 Proposed Procedures Side Surgeon p Cystoscopy/ ? Transurethral Resection Bladder Tumor José Garza MD Actual Procedures Side Surgeon p Cystoscopy/ ? Transurethral Resection Bladder Tumor José Garza MD k Meds Allergies and Home Medications Allergies Allergy/AdvReac Type Severity Reaction Status Date / Time Sulfa (Sulfonamide Allergy Severe RASH ALL Verified 06/27/21 11:10 Antibiotics) OVER BODY Home Medication Medication Instructions Recorded Lactobacillus rhamnosus GG 1 ea PO DAILY 01/28/13 calcium carbonate-vitamin D3 1 ea PO DAILY 11/25/13 [Calcium 600 with Vitamin D3] multivitamin [Daily Multi-Vitamin] 1 ea PO DAILY 11/25/13 garlic 500 mg PO DAILY 08/27/14 psyllium seed (sugar) oral powder 1 tsp PO DAILY gm 10/28/19 acetaminophen 500 mg capsule 500 mg PO QAM cap 02/08/21 hydrochlorothiazide 25 mg tablet 25 mg PO DAILY #90 tab-cap 02/08/21 incontinence pad, liner, disp #100 ea 02/08/21 lisinopril 20 mg tablet 20 mg PO DAILY #90 tab-cap 02/08/21 simvastatin 40 mg tablet 40 mg PO HS #90 tab-cap 02/08/21 amlodipine 2.5 mg tablet 2.5 mg PO BID #90 tab 05/03/21 Current Visit Medications: Current Medications Generic Name Dose Route Start Last Admin Trade Name Freq PRN Reason Stop Dose Admin Ringer's Solution 1,000 mls @ 80 mls/hr 06/27/21 06:00 06/27/21 11:48 IV 06/27/21 23:59 80 mls/hr INFUSION MEHDI Administration Cefazolin Sodium/Dextrose 1 gm in 50 mls @ 100 mls/hr 06/27/21 06:00 Ancef Duplex IVPB 06/27/21 23:59 PREOP MEHDI IV Miscellaneous Supplies 1 each 06/27/21 06:00 Iv Access IV 06/27/21 23:59 DIRECTED MEHDI Sodium Chloride 0 ml 06/27/21 06:00 Normal Saline Flush 10 Ml Syr IV 06/27/21 23:59 PRN PRN Sodium Chloride 0 ml 06/27/21 06:00 Normal Saline 10 Ml Vial IJ 06/27/21 23:59 DIRECTED PRN Sterile Water 0 ml 06/27/21 06:00 Water,Injection,Sterile 10 Ml Vial IJ 06/27/21 23:59 DIRECTED PRN PFSH Active Problems Active Problems: Problem Status Onset Code Bladder mass N32.89 Hematuria R31.9 Liver mass R16.0 PVCs (premature ventricular contractions) I49.3 Family history of colon cancer Z80.0 Abnormal MRI, liver R93.2 Urinary frequency R35.0 Abdominal pain R10.9 Nocturia more than twice per night R35.1 Shoulder pain, right M25.511 Sensorineural hearing loss, unilateral 10/26/16 H90.5 Polyp of colon 02/07/13 K63.5 Hyperlipidemia E78.5 Hemorrhoid K64.9 Ganglion and cyst of synovium, tendon and bursa 11/27/13 M67.49, M67.89, M71.39 Generalized osteoarthrosis M15.9 Essential hypertension 11/10/13 I10 Conductive hearing loss, unilateral 03/12/14 H90.2 Chronic serous otitis media, left ear 10/26/16 H65.22 Medical History Medical History Abnormal MRI, liver Actinic keratosis, hx of Colon polyps Conductive hearing loss, unilateral (03/12/14) Essential hypertension (11/10/13) Ganglion cyst of wrist Generalized osteoarthrosis DJD 1st MCP joint right hand hip and knee pain Hearing loss Hemorrhoid Hip pain (10/04/95) History of serous otitis media Hyperlipidemia Hyperlipidemia Hypertension Osteoarthritis Polyp of colon (02/07/13) DR. KEYANA CERVANTES; TUBULAR ADENOMA family h/o colon ca PVCs (premature ventricular contractions) Sensorineural hearing loss, unilateral (10/26/16) Surgical History Surgical History Colonoscopy - IV Sedation 2006; NEG 2012; TUBULAR ADENOMA Colonoscopy - MAC (02/05/18) Hemorrhoidal Banding (02/05/18) Hysterectomy, Laproscopic (~1977) Tobacco Smoking/Tobacco Use Status: Never Alcohol Alcohol Intake: never Substance Use Substance use: Never Substance use type: does not use Vital Signs and Lab Results Vital Signs Most Recent Vital Signs in EMR: Most Recent Vital Signs Temp Pulse Resp BP Pulse Ox 36.4 C L 75 18 136/84 98 06/27/21 11:00 06/27/21 11:00 06/27/21 11:00 06/27/21 11:00 06/27/21 11:00 Lab Results Blood Type / Crossmatch: No Data to Display Complete Blood Count: No Data to Display Complete Metabolic Panel: Creatinine 1.0 mg/dL (0.55-1.02) 06/14/21 08:17 06/14/21 Estimated GFR/1.73 m2 52.82 (mL/min/1.73m2) 06/14/21 08:17 06/14/21 Liver Function Panel: No Data to Display Coagulation Panel: No Data to Display Cardiac Panel: No Data to Display Arterial Blood Gas: No Data to Display Venous Blood Gas: No Data to Display Pancreas Panel: No Data to Display Thyroid Panel: No Data to Display Infectious Disease: Coronavirus (COVID-19)(PCR) Negative (Negative) 06/24/21 08:44 06/24/21 Coronavirus 2019 Source Nasal/Nares 06/24/21 08:44 06/24/21 Blood Cultures: No Data to Display Toxicology Panel: No Data to Display Anesthesia Assessment and Plan Anesthesia History Personal History: No History of Anesthesia Complications Family History: No Family History of Anesthesia Complications Exercise Tolerance Exercise Tolerance: Metabolic Equivalents>4 Pertinent Negatives Pertinent Negatives: No Symptoms of GERD, No Major Cardiovascular Symptoms or Complaints, No Major Pulmonary Symptoms or Complaints and No History of CVA/TIA Cardiac & Pulmonary Exam Cardiac Exam: Normal S1/S2 Heart Sounds Pulmonary Exam: Clear Bilateral Breath Sounds Airway Exam Known Difficult Airway: No Mallampati Class: 2 Mouth Opening: Normal (> 3cm) Thyromental Distance: Greater than 3 cm Neck Range of Motion: Full ROM Neck Circumference: Normal Teeth Condition: Removable Dentures/Plates Upper ASA Classification ASA Score: ASA 2 Emergency Case?: No NPO Status NPO Status: NPO Clears >2 hours, Solids >8 hours Anesthesia Plan Resuscitation Status: Full Code Anesthesia Technique: General Anesthesia Airway Planned: Natural Airway Monitors Used: Standard Monitors
[2021-06-27 13:51] VITALS: BMI 27.6
[2021-06-27] MEDS: ceFAZolin 1 GM/50 ML BAG IVPB (14:22)
[2021-06-27] MEDS: Lidocaine 2% Jelly 6 ML SYR (14:26)
--- NOTE | 2021-06-27 14:41 | BLADDER_PTH ---
PATIENT: Clover Mendez I LOC: [facility] U#:[id number] AGE/SX: 86/F ROOM: RE06/27/[address]: José Garza MD : [id number] BED: DIS: 06/27/2021 SPEC #: [id number] RECD: 06/27/21 17:28 STATUS: RUBÉN REIris #: [id number] RAYNE: 06/27/21 14:[address]: José Garza DEPT: Surgical Specimen RECD BY: Melissa Herndon ENTERED: 06/27/21 17:28 SP TYPE: Bladder OTHR DR: Jasmine Lorenzana APRN Tissues: 1 - BLADDER CURRETTINGS Procedures: GROSS AND MICRO LEVEL 5 Comments: [id number]
--- NOTE | 2021-06-27 14:50 | W.PM.DSUDISC ---
Discharge Plan Disposition Patient Disposition: HOME Condition: Stable Discharge Details Admit Date/Time: 06/27/21 10:02 Admit Provider: José Garza Attending Provider: José Garza Primary Care Provider: Jasmine Lorenzana Hospital Course Hospital Course: The patient was brought to the operating room on 06/27/2021. She underwent cystoscopy which revealed a large bladder tumor. She then underwent transurethral resection. At the completion of the resection, the tumor bed showed no active bleeding, so it was felt that she did not require hospitalization for continuous bladder irrigation. A Adame catheter was placed and hooked to gravity drainage. She will be discharged with the catheter in place. Home Meds and New Rx's Prescriptions: No Action Metamucil (sugar) Powder 1 tsp PO DAILY RF: 0 amlodipine 2.5 mg tablet 2.5 mg PO BID Qty: 90 RF: 1 acetaminophen 500 mg capsule 500 mg PO QAM RF: 0 hydrochlorothiazide 25 mg tablet 25 mg PO DAILY Qty: 90 RF: 4 Hold Instructions: Home Medication placed on hold at Doctor's office lisinopril 20 mg tablet 20 mg PO DAILY Qty: 90 RF: 4 simvastatin 40 mg tablet 40 mg PO HS Qty: 90 RF: 4 (DME) Bladder Control Pad Pad See Rx Instructions .ROUTE .MEDSUPPLY Qty: 100 RF: 0 multivitamin [Daily Multi-Vitamin] 1 EACH tablet 1 ea PO DAILY RF: 0 calcium carbonate-vitamin D3 [Calcium 600 with Vitamin D3] 1 EACH tablet 1 ea PO DAILY RF: 0 garlic 1,000 MG capsule 500 mg PO DAILY RF: 0 Lactobacillus rhamnosus GG 1 EACH capsule 1 ea PO DAILY RF: 0 Discharge Instructions Additional Instructions: Adame catheter to leg bag Follow up for catheter removal in about 1 week Follow-up for pathology results in about 2 weeks Activity:: Activity as Tolerated Equipment/Supplies:: Adame to legbag Diet:: As Tolerated Discharge Orders Discharge Orders: Discharge Order (Routine); Ordered 06/27/21 Ordered By: José Garza DS: Diagnosis Discharge Diagnosis (1) Hematuria: Status: Acute (2) Bladder mass: Status: Acute
[2021-06-27 14:52] VITALS: BP 123/63; PULSE 72; RESP 20; TEMP 36.3; O2SAT 97
--- NOTE | 2021-06-27 14:55 | ROE_ITS ---
Date of service: 06/27/21 Time of Service: 14:55 Operative Note Operative Note DATE OF PROCEDURE: 06/27/21 PRE-OP DIAGNOSIS: Hematuria Bladder mass POST-OP DIAGNOSIS: same PROCEDURE: Cystoscopy with TURBT SURGEON: José Garza ANESTHESIA TYPE: Local By Surgeon and General:No Airway Refer to Anesthesia Record ESTIMATED BLOOD LOSS: 100 PATHOLOGY: other (Bladder tumor) Patient was transported to: same day Patient's condition: stable Implants: 16 [place] eid catheter with 10 cc sterile water in balloon Indications: This is an 86-year-old woman who was evaluated for gross hematuria. She underwent a CT urogram which demonstrated a mass within the bladder. She presents for cystoscopy with possible transurethral resection of the mass. Findings: Papillary bladder mass right side of bladder No bladder fixation on postresection pelvic exam Procedure Description: The patient was brought to the operating room on 06/27/2021. She was given preoperative antibiotics. After successful induction of general anesthesia without intubation, she was placed in the dorsal lithotomy position. Her genitalia was prepped and draped. A 24 [place] resectoscope sheath was passed through the urethra into the bladder. The bladder was inspected using a visual obturator and the 30 degree lens. The left side of the bladder appeared normal. On the right side of the bladder, behind the right ureteral orifice, we visualized a large papillary lesion. The lesion measured between 2 and 5 cm. There appeared to be rather narrow stalk of attachment to the remainder of the bladder. We used an [employer] resectoscope to perform transurethral resection of the visible tumor. All resected tissue was evacuated and sent to pathology for permanent section. The base of the resection was cauterized using the coagulation current. At the completion of the procedure, no active bleeding was seen. Because of the depth of our resection, we elected to place a Eid catheter all the bladder to heal. We also elected not to instill periprocedural intravesical chemotherapy. A 16 [place] Eid was passed through the urethra into the bladder. The catheter balloon was inflated with 10 cc of sterile water. The catheter was hooked to gravity drainage. Bimanual examination was then performed and no bladder fixation was identified. She tolerated this procedure well. She was taken back to the day surgery unit in stable condition.
--- NOTE | 2021-06-27 15:16 | W.ANESPOSTOP ---
Postoperative Evaluation Date, Time and Location Date Performed: 06/27/21 Time Performed: 15:16 Patient Location: Day Surgery Unit Vital Signs Most Recent Imported Vital Signs: Temp Pulse Resp BP Pulse Ox 36.0 C L 69 18 141/82 H 100 06/27/21 15:24 06/27/21 15:24 06/27/21 15:24 06/27/21 15:24 06/27/21 15:24 Assessment Mental Status: Awake (Alert & Oriented to Patient Baseline) Airway and Respiratory Function: Patent airway with normal (patient baseline) respiratory exam Cardiovascular Function: Hemodynamically Stable Hydration Status: Adequately Hydrated Nausea & Vomiting: No Nausea or Vomiting Pain: Pt. Denies Any Pain Peripheral Nerve Block: Patient did not receive a nerve block
[2021-06-27] MEDS: Phenazopyridine 200 MG TAB PO (15:22)
[2021-06-27 15:24] VITALS: BP 141/82; PULSE 69; RESP 18; TEMP 36; O2SAT 100
== END 2021-06-27 16:25 | disposition home or self-care (01) | DRG 670 ==
LOC: PDS 14:54 → DSU 06-28 10:35
PROVIDERS: PCP Nurse Practitioner; Visit Provider Urology
PROC: 0TBB8ZZ Excision of Bladder, Via Natural or Artificial Opening Endoscopic (ICD-10-PCS; CPT 52235; principal; 2021-06-27 12:30)
DX: N32.89 Other specified disorders of bladder (principal); R35.0 Frequency of micturition; R30.0 Dysuria; R31.0 Gross hematuria; I10 Essential (primary) hypertension; M15.9 Polyosteoarthritis, unspecified; E78.5 Hyperlipidemia, unspecified; I49.3 Ventricular premature depolarization; C67.9 Malignant neoplasm of bladder, unspecified
CPT/HCPCS: 52235; 88305; 88307; J0690; J2001

== ENCOUNTER → 2021-07-04 08:00 | Outpatient (BNVA) | payer MEDICARE, OTHER, SELFPAY | PROVIDERS: PCP Student in an Organized Health Care Education/Training Program; Referring Provider Nurse Practitioner; Visit Provider Urology | DX: C67.9 Malignant neoplasm of bladder, unspecified (principal); D09.0 Carcinoma in situ of bladder | CPT/HCPCS: 99214 ==

== ENCOUNTER 2021-07-26 01:30 | Outpatient (CLI) | payer MEDICARE, OTHER, SELFPAY ==
[2021-07-26 08:56] LABS: HCT 42.6 % (36.0-46.0); HGB 13.9 g/dL (11.2-15.7); MCHC 32.6 % (32.0-36.0); MCV 94.9 fL (80-95); MPV 9.9 fL (8.0-11.0); Platelet Count 230 10^3/uL (130-400); RBC 4.49 10^6/uL (3.93-5.22); RDW 12.3 % (11.7-14.6); RDW-SD 42.8 fL; WBC 5.96 10^3/uL (4.4-10.8)
[2021-07-26 11:02] LABS: ALT 31 U/L (14-59); AST 22 U/L (15-37); Alkaline Phosphatase 59 U/L (46-116); Anion Gap 6.6 mmol/L (3-11); BUN 13 mg/dL (7-18); Bilirubin, Total 0.6 mg/dL (0.2-1.0); CO2 31.4 mmol/L (21.0-32.0); CREATININE 0.9 mg/dL (0.55-1.02); Calcium 9.3 mg/dL (8.5-10.1); Calculated LDL 138 mg/dL (<100); Chloride 102 mmol/L (98-107); Cholesterol 238 mg/dL (<200); Estimated GFR 59.65 (mL/min/1.73m2); Ferritin 77 ng/mL (8-252); Glucose 103 mg/dL (74-106); HDL Cholesterol 53 mg/dL (40-60); Potassium 4.4 mmol/L (3.5-5.1); Sodium 140 mmol/L (136-145); Total Protein 6.4 g/dL (6.4-8.2); Triglyceride 238 mg/dL (<150)
== END 2021-07-26 01:31 | disposition home or self-care (01) ==
LOC: LBO 01:30
PROVIDERS: PCP Student in an Organized Health Care Education/Training Program; Visit Provider Student in an Organized Health Care Education/Training Program
DX: I10 Essential (primary) hypertension (principal); R42 Dizziness and giddiness; K63.5 Polyp of colon; R10.9 Unspecified abdominal pain; R16.0 Hepatomegaly, not elsewhere classified
CPT/HCPCS: 36415; 80053; 80061; 85027; 82728

== ENCOUNTER → 2021-07-29 08:46 | Outpatient (BNVA) | payer MEDICARE, OTHER, SELFPAY | PROVIDERS: PCP Student in an Organized Health Care Education/Training Program; Referring Provider Student in an Organized Health Care Education/Training Program; Visit Provider Urology | DX: D09.0 Carcinoma in situ of bladder (principal); C67.9 Malignant neoplasm of bladder, unspecified; Z51.11 Encounter for antineoplastic chemotherapy | CPT/HCPCS: 51720; 81003; 99213; J9030 ==

== ENCOUNTER → 2021-08-09 08:44 | Outpatient (BNVA) | payer MEDICARE, OTHER, SELFPAY | PROVIDERS: PCP Student in an Organized Health Care Education/Training Program; Referring Provider Student in an Organized Health Care Education/Training Program; Visit Provider Urology | DX: C67.9 Malignant neoplasm of bladder, unspecified (principal); D09.0 Carcinoma in situ of bladder; Z51.11 Encounter for antineoplastic chemotherapy | CPT/HCPCS: 51720; 81003; J9030 ==

== ENCOUNTER → 2021-08-16 08:46 | Outpatient (BNVA) | payer MEDICARE, OTHER, SELFPAY | PROVIDERS: PCP Student in an Organized Health Care Education/Training Program; Referring Provider Student in an Organized Health Care Education/Training Program; Visit Provider Urology | DX: D09.0 Carcinoma in situ of bladder (principal); C67.9 Malignant neoplasm of bladder, unspecified; Z51.11 Encounter for antineoplastic chemotherapy | CPT/HCPCS: 51720; 81003; 99213; J9030 ==

== ENCOUNTER → 2021-08-23 08:50 | Outpatient (BNVA) | payer MEDICARE, OTHER, SELFPAY | PROVIDERS: PCP Student in an Organized Health Care Education/Training Program; Referring Provider Student in an Organized Health Care Education/Training Program; Visit Provider Urology | DX: D09.0 Carcinoma in situ of bladder (principal); Z51.11 Encounter for antineoplastic chemotherapy | CPT/HCPCS: 51720; 81003; J9030 ==

== ENCOUNTER → 2021-08-30 08:50 | Outpatient (BNVA) | payer MEDICARE, OTHER, SELFPAY | PROVIDERS: PCP Student in an Organized Health Care Education/Training Program; Referring Provider Student in an Organized Health Care Education/Training Program; Visit Provider Nurse Practitioner Gerontology | DX: D09.0 Carcinoma in situ of bladder (principal); Z51.11 Encounter for antineoplastic chemotherapy | CPT/HCPCS: 51720; 81003; J9030 ==

== ENCOUNTER → 2021-09-06 12:43 | Outpatient (BNVA) | payer MEDICARE, OTHER, SELFPAY | PROVIDERS: PCP Student in an Organized Health Care Education/Training Program; Referring Provider Student in an Organized Health Care Education/Training Program; Visit Provider Nurse Practitioner Gerontology | DX: D09.0 Carcinoma in situ of bladder (principal); Z51.11 Encounter for antineoplastic chemotherapy | CPT/HCPCS: 51720; 81003; J9030 ==

== ENCOUNTER 2021-10-20 06:33 | Emergency (ER) | payer MEDICARE, OTHER, SELFPAY ==
[2021-10-20 06:34] VITALS: BP 159/71; PULSE 84; RESP 18; TEMP 36.4; O2SAT 99
--- NOTE | 2021-10-20 06:54 | W.ED.GENAD ---
Discharge Plan Disposition Patient Disposition: HOME Condition: Improving Discharge Details Clinical Impression: Dislocation of right shoulder joint Primary Care Provider: Anayeli Armenta ED Provider: Harley Alfred Home Meds and New Rx's Prescriptions: Continued Metamucil (sugar) Powder 1 tsp PO DAILY RF: 0 amlodipine 2.5 mg tablet 2.5 mg PO DAILY Qty: 90 RF: 3 acetaminophen 500 mg capsule 500 mg PO QAM RF: 0 hydrochlorothiazide 25 mg tablet 25 mg PO DAILY Qty: 90 RF: 4 Hold Instructions: Home Medication placed on hold at Doctor's office lisinopril 20 mg tablet 20 mg PO DAILY Qty: 90 RF: 4 simvastatin 40 mg tablet 40 mg PO HS Qty: 90 RF: 4 (DME) Bladder Control Pad Pad See Rx Instructions .ROUTE .MEDSUPPLY Qty: 100 RF: 0 multivitamin [Daily Multi-Vitamin] 1 EACH tablet 1 ea PO DAILY RF: 0 calcium carbonate-vitamin D3 [Calcium 600 with Vitamin D3] 1 EACH tablet 1 ea PO DAILY RF: 0 garlic 1,000 MG capsule 500 mg PO DAILY RF: 0 Discharge Instructions Instructions: Shoulder Dislocation (ED) Additional Instructions: Please follow-up with orthopedics for recheck first. The office number is [phone], a referral was placed on your behalf today. Wear sling 7-10 days time, may remove for bathing. Ice to area to reduce discomfort, Tylenol and/or Ibuprofen as needed for pain. Return to the ER for any acute concerns. Medical Decision Making 86-year-old male who slipped, fell outside versus on [employer] morning. She tripped on her right shoulder. There was no loss of consciousness. She did not have injury, back, chest. She did have abrasions and bilateral posterior knee without underlying bony injury. Exam patient's tetanus was always updated, she is referred x-ray of right shoulder. There is slight posterior glenohumeral dislocation. With the patient consent form I provided gentle axial traction and external rotation with muslim of fullness of humeral head. Patient referred for repeat x-ray, which notes reduction of glenohumeral patient dislocation. Patient placed in sling. Given her age, Iwill refer her to orthopedics for follow-up. She is stable and improved. HPI General Mode of arrival: EMS. Date/Time Provider Initiated Documentation: 10/20/21 06:48. Limitations to Documentation: no limitations. Information obtained by: patient and EMS. History of Present Illness 86 year old F presents to the emergency department with the chief complaint of Frequent fall, shoulder pain, described as moderate, Quality is described as dull and constant, and is localized to the right and upper extremity. Patient reports no radiation. Patient started experiencing this minute(s) and it has been constant. Rest improves symptom(s), Movement worsens symptoms . Patient notes denies chest pain, headaches, syncope and weakness. Patient did receive the following treatments prior to arrival, splint Related Data Home Medications Medication Instructions Recorded Confirmed calcium carbonate-vitamin D3 1 ea PO DAILY 11/25/13 10/20/21 [Calcium 600 with Vitamin D3] multivitamin [Daily Multi-Vitamin] 1 ea PO DAILY 11/25/13 10/20/21 garlic 500 mg PO DAILY 08/27/14 10/20/21 psyllium seed (sugar) oral powder 1 tsp PO DAILY gm 10/28/19 10/20/21 acetaminophen 500 mg capsule 500 mg PO QAM cap 02/08/21 09/06/21 hydrochlorothiazide 25 mg tablet 25 mg PO DAILY #90 tab-cap 02/08/21 09/06/21 incontinence pad, liner, disp #100 ea 02/08/21 09/06/21 lisinopril 20 mg tablet 20 mg PO DAILY #90 tab-cap 02/08/21 10/20/21 simvastatin 40 mg tablet 40 mg PO HS #90 tab-cap 02/08/21 10/20/21 amlodipine 2.5 mg tablet 2.5 mg PO DAILY #90 tab 07/22/21 10/20/21 Previous Rx's Medication Instructions Recorded hydrochlorothiazide 25 mg tablet 25 mg PO DAILY #90 tab-cap 02/08/21 incontinence pad, liner, disp #100 ea 02/08/21 lisinopril 20 mg tablet 20 mg PO DAILY #90 tab-cap 02/08/21 simvastatin 40 mg tablet 40 mg PO HS #90 tab-cap 02/08/21 amlodipine 2.5 mg tablet 2.5 mg PO DAILY #90 tab 07/22/21 Allergies Allergy/AdvReac Type Severity Reaction Status Date / Time Sulfa (Sulfonamide Allergy Severe RASH ALL Verified 08/04/21 14:35 Antibiotics) OVER BODY General Stated Complaint: Orthopedic KIRSTEN: 4 Review of Systems Narrative: Abrasions to both knees. No consciousness. Denies headache headache./Chest/back pain. 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 (Acute) Liver mass (Acute) PVCs (premature ventricular contractions) (Acute) Family history of colon cancer (Acute) Abnormal MRI, liver (Acute) Urinary frequency (Acute) Abdominal pain (Acute) Nocturia more than twice per night (Chronic) Shoulder pain, right (Chronic) Sensorineural hearing loss, unilateral (Chronic 10/26/16) Polyp of colon (Acute 02/07/13) Hyperlipidemia (Chronic) Hemorrhoid (Acute) Ganglion and cyst of synovium, tendon and bursa (Acute 11/27/13) Generalized osteoarthrosis (Chronic) Essential hypertension (Chronic 11/10/13) Conductive hearing loss, unilateral (Acute 03/12/14) Chronic serous otitis media, left ear (Acute 10/26/16) Medical History Actinic keratosis, hx of Colon polyps Ganglion cyst of wrist Hearing loss Hip pain (10/04/95) History of serous otitis media Hyperlipidemia Hypertension Osteoarthritis Surgical History Colonoscopy - IV Sedation 2006; NEG 2012; TUBULAR ADENOMA Colonoscopy - MAC (02/05/18) Hemorrhoidal Banding (02/05/18) History of bladder surgery 06/2021 Dr. Garza Hysterectomy, Laproscopic (~1977) Family History Mother , OLD AGE at age 82. Heart disease Father , OLD AGE at age 84. Heart disease Sister Neoplasm KIDNEY Sister Neoplasm COLON Sister No problems noted. Sister Essential hypertension Neoplasm Sister Hyperlipidemia Sister Hyperlipidemia Brother Acute type B viral hepatitis Essential hypertension Brother , ACCIDENTAL at age 13. No problems noted. Brother , SUICIDE at age 70. Depression Sister Diabetes Social History Smoking/Tobacco Use Status: Never Smoking risk assessment performed?: Yes Alcohol Intake: never Drug use: Never Substance use type: does not use Household members: spouse Housing: house Number of Children: 0 current occupation: [employer] Pets and animals: No What type of physical activity do you participate in: walking Duration: 45-60 minutes/day Frequency: daily Summer/Restorationism: Evangelical Special summer needs: No Working smoke detector in home: Yes Fire extinguisher in home: Yes Carbon monox detector in home: Yes Additional Social history: Unable to assess [employer] Exam Narrative Exam Narrative: GEN: awake, alert, oriented 3. Pleasant, well groomed, interactive. HEAD: Normocephalic, atraumatic ENT: Mucous membranes moist, oropharynx unremarkable, External ear exam unremarkable EYES: PERRL, EOMI NECK: Full ROM, no MARIUSZ, no menigismus CHEST/RESP: Nontender, clear to auscultation bilateral, no wheeze/rhonchi/rales CARDIOVASCULAR: RRR, no murmur, rub champ. 2+ Rad pulse bilateral ABDOMEN: Soft, nontender, no mass. +Bowel sounds EXT: Patient abrasions bilateral kneecap. No bony point tenderness. Full strength of the lower extr. The right arm is held full rotation internal rotation and add reaction. Tender right humeral head with loss of fullness right humeral; this still motor and function within normal limits with 2+ radially pulse bilateral. Neuro: Grossly normal neurologic exam, conversant, interactive. Psych: Speech fluent, thoughts congruent, affect normal Course Vital Signs Vital signs: Vital Signs Temperature 36.4 C L 10/20/21 06:34 Pulse 84 10/20/21 06:34 Respiratory Rate 18 10/20/21 06:34 Blood Pressure 159/71 H 10/20/21 06:34 Pulse Oximetry 99 10/20/21 06:34 Temperature 36.4 C L 10/20/21 06:34 Temperature Source Temporal Artery Scan 10/20/21 06:34 Pulse 84 10/20/21 06:34 Respiratory Rate 18 10/20/21 06:34 Respiratory Effort 10/20/21 06:43 Blood Pressure 159/71 H 10/20/21 06:34 Pulse Oximetry 99 10/20/21 06:34 Pain Level 10 10/20/21 06:43 Procedures Orthopedic Joint Reduction Joint #1: Time Out Performed: Yes Side: right Joint Reduction Location: shoulder Analgesia: none Shoulder Technique Used (if applicable): external rotation Post-reduction neuro exam: intact Post-reduction vascular: intact Post Reduction X-Ray Obtained: Yes Splint Applied: Yes
[2021-10-20] MEDS: Acetaminophen 325 MG TAB (06:55)
[2021-10-20] MEDS: Tetanus & Diphtheria Tox,ADULT 0.5 ML VIAL IM (07:04)
--- NOTE | 2021-10-20 07:15 | DI.RAD_ITS ---
Exam(s) XR SHOULDER RT COMPLETE 2+V EXAM: XR SHOULDER RT COMPLETE 2+V CLINICAL HISTORY: s/p manipulation. Pain. TECHNIQUE: 2D digital imaging was performed. COMPARISON: CR XR SHOULDER RT COMPLETE 2+V from 10/20/2021 FINDINGS: Postreduction two views reveal satisfactory realignment of the glenohumeral joint. On the outlet vie w there is suggestion of a Hill-Sachs deformity in the humeral head. There is also a subtle calcific density parallel to the lower cortex of the greater tuberosity noted. AC joint is not distracted. IMPRESSION: Glenohumeral joint realignment. Probable Hill-Sachs deformity. DATA REPOSITORY: RADIATION DOSE DELIVERED:
--- NOTE | 2021-10-20 07:20 | DI.RAD_ITS ---
Exam(s) XR SHOULDER RT COMPLETE 2+V EXAM: XR SHOULDER RT COMPLETE 2+V CLINICAL HISTORY: pain after fall. TECHNIQUE: 2D digital imaging was performed. COMPARISON: No exams were available for comparison FINDINGS: There is anterior dislocation of the humeral head relative to the glenoid fossa. No obvious fracture s evident. AC joint is not distracted. IMPRESSION: Anterior glenohumeral joint dislocation. DATA REPOSITORY: RADIATION DOSE DELIVERED:
[2021-10-20 07:55] VITALS: BP 159/71; PULSE 80; RESP 16; O2SAT 99
== END 2021-10-20 07:57 | disposition home or self-care (01) ==
PROVIDERS: Emergency Provider Emergency Medicine; PCP Student in an Organized Health Care Education/Training Program
DX: S43.084A Other dislocation of right shoulder joint, initial encounter (principal); W00.2XXA Other fall from one level to another due to ice and snow, initial encounter
CPT/HCPCS: 23650; 73030

== ENCOUNTER → 2021-10-25 12:50 | Outpatient (BNVA) | payer MEDICARE, OTHER, SELFPAY | PROVIDERS: PCP Student in an Organized Health Care Education/Training Program; Referring Provider Student in an Organized Health Care Education/Training Program; Visit Provider Urology | DX: D09.0 Carcinoma in situ of bladder (principal); C67.9 Malignant neoplasm of bladder, unspecified | CPT/HCPCS: 52000; 81003 ==

== ENCOUNTER 2021-10-26 11:48 | Outpatient (CLI) | payer MEDICARE, OTHER, SELFPAY ==
--- NOTE | 2021-10-26 10:45 | DI.RAD_ITS ---
Exam(s) XR SHOULDER RT COMPLETE 2+V EXAM: XR SHOULDER RT COMPLETE 2+V CLINICAL HISTORY: follow up. TECHNIQUE: 2D digital imaging was performed of the right shoulder. Two images were obtained. AP an d axillary views were obtained. COMPARISON: CR XR SHOULDER RT COMPLETE 2+V from 10/20/2021 FINDINGS: BONES: There is again seen depression of the lateral aspect of the humeral head suspicious for fractu re. It is unchanged. No bony destructive lesion is seen. JOINTS: No dislocation present. SOFT TISSUE: Normal. IMPRESSION: Stable depression of the lateral aspect of the humeral head suspicious for fracture. DATA REPOSITORY: RADIATION DOSE DELIVERED:
== END 2021-10-26 11:49 | disposition home or self-care (01) ==
LOC: DIORS 11:48
PROVIDERS: PCP Student in an Organized Health Care Education/Training Program; Referring Provider Student in an Organized Health Care Education/Training Program; Visit Provider Physician Assistant Surgical
DX: S43.004A Unspecified dislocation of right shoulder joint, initial encounter (principal); W00.0XXA Fall on same level due to ice and snow, initial encounter
CPT/HCPCS: 99214; 73030

== ENCOUNTER 2021-10-31 03:03 | Outpatient (CLI) | payer MEDICARE, OTHER, SELFPAY ==
--- NOTE | 2021-10-31 08:00 | DI.CT_ITS ---
Exam(s) CT CHEST PE CTA EXAM: CT CHEST PE CTA CLINICAL HISTORY: chest pain, back pain, recent fall,? PE. TECHNIQUE: Imaging Protocol: CT angiography of the chest was performed using pulmonary embolus sariah col. Multi planar reconstructions were performed. CONTRAST MATERIAL: Intravenous: Omnipaque 350 Contrast volume: 100 cc COMPARISON: CT CT ABDOMEN PELVIS WO/W from 06/14/2021 FINDINGS: CHEST: PULMONARY ARTERIES: There are no intraluminal filling defects to suggest acute pulmonary emboli. LUNGS: Mild increased subpleural markings in the anterior segment of the right upper lobe. There are mild increased markings in the posterior basal segment of the left lower lobe. No prominent infiltr ate. No pleural effusions on either side. No findings in the trachea and mainstem bronchi. Are no pleural effusions. MEDIASTINUM: There is no hilar nor mediastinal adenopathy. Visualized thyroid unremarkable. CARDIAC: Heart size is upper normal. There is no pericardial effusion.Caliber of the thoracic aorta is within normal limits. There is no significant shift of the interventricular septum. PARTIALLY VISUALIZED UPPERMOST ABDOMEN: No obvious findings OSSEOUS: No significant osseous lesions.. IMPRESSION: 1. No evidence of acute pulmonary emboli. No evidence of pulmonary infarction.No pleural effusions. 2. Mild pulmonary markings as described above but no prominent confluent infiltrates. No intrathorac ic adenopathy evident. RADIATION DOSE DELIVERED: 296.16mGy.cm Total DLP DATA REPOSITORY: All CT scans at this facility are submitted to the National Radiology Data Registry (NRDR) Dose Index Registry (DIR) with the [employer] (ACR). RADIATION OPTIMIZATION: All CT scans at this facility use at least one of these dose optimization te chniques: automated exposure control; mA and/or kV adjustment per patient size (includes targeted exa ms where dose is matched to clinical indication); or iterative reconstruction.
[2021-10-31 11:17] LABS: CREATININE 0.8 mg/dL (0.55-1.02)
[2021-10-31] MEDS: Omnipaque 350 MG/ML 100 ML BTL IJ (11:43)
[2021-10-31] MEDS: Normal Saline Flush 10 ML SYR IVP (11:43)
== END 2021-10-31 03:23 ==
PROVIDERS: PCP Student in an Organized Health Care Education/Training Program; Visit Provider Physician Assistant
DX: R07.9 Chest pain, unspecified (principal); M54.89 Other dorsalgia; Z91.81 History of falling; J98.4 Other disorders of lung
CPT/HCPCS: 36415; 71275; 82565; J3490

== ENCOUNTER 2021-11-29 03:53 | Outpatient (CLI) | payer MEDICARE, OTHER, SELFPAY ==
[2021-11-29 10:40] LABS: Source Nasal/Nares
[2021-11-29 14:24] LABS: COVID-19 PCR Negative (Negative)
== END 2021-11-29 03:54 | disposition home or self-care (01) ==
LOC: LBO 03:53
PROVIDERS: PCP Nurse Practitioner; Visit Provider Urology
DX: Z20.822 Contact with and (suspected) exposure to COVID-19 (principal)
CPT/HCPCS: 87635

== ENCOUNTER 2021-12-01 07:03 | Day surgery (SDC) | payer MEDICARE, OTHER, SELFPAY ==
[2021-12-01 07:39] VITALS: BP 161/84; PULSE 78; RESP 20; TEMP 35.6; O2SAT 99
--- NOTE | 2021-12-01 07:55 | ANES.PREOP_ITS ---
General Info Date of Service Date Performed: 12/01/21 Height: 5 ft 6 in Weight: 68.7 kg Body Mass Index (BMI): 24.4 Surgical Procedure: Operation Date: 12/01/21 08:55 Proposed Procedures Side Surgeon p Cystoscopy w/TURBT José Garza MD Meds Allergies and Home Medications Allergies Allergy/AdvReac Type Severity Reaction Status Date / Time Sulfa (Sulfonamide Allergy Severe RASH ALL Verified 11/30/21 08:45 Antibiotics) OVER BODY Home Medication Medication Instructions Recorded calcium carbonate-vitamin D3 1 ea PO DAILY 11/25/13 [Calcium 600 with Vitamin D3] multivitamin [Daily Multi-Vitamin] 1 ea PO DAILY 11/25/13 garlic 500 mg PO DAILY 08/27/14 psyllium seed (sugar) oral powder 1 tsp PO DAILY gm 10/28/19 acetaminophen 500 mg capsule 500 mg PO QAM cap 02/08/21 incontinence pad, liner, disp #100 ea 02/08/21 lisinopril 20 mg tablet 20 mg PO DAILY #90 tab-cap 02/08/21 simvastatin 40 mg tablet 40 mg PO HS #90 tab-cap 02/08/21 amlodipine 2.5 mg tablet 2.5 mg PO DAILY #90 tab 07/22/21 Current Visit Medications: Current Medications Generic Name Dose Route Start Last Admin Trade Name Freq PRN Reason Stop Dose Admin Ringer's Solution 1,000 mls @ 80 mls/hr 12/01/21 06:00 IV 12/30/21 23:59 INFUSION MEHDI Cefazolin Sodium/Dextrose 2 gm in 50 mls @ 100 mls/hr 12/01/21 06:00 Ancef Duplex IVPB 12/01/21 16:00 PREOP MEHDI IV Miscellaneous Supplies 1 each 12/01/21 06:00 Iv Access IV 12/30/21 23:59 DIRECTED MEHDI Sodium Chloride 0 ml 12/01/21 06:00 Normal Saline Flush 10 Ml Syr IV 12/30/21 23:59 PRN PRN Sodium Chloride 0 ml 12/01/21 06:00 Normal Saline 10 Ml Vial IJ 12/30/21 23:59 DIRECTED PRN Sterile Water 0 ml 12/01/21 06:00 Water,Injection,Sterile 10 Ml Vial IJ 12/30/21 23:59 DIRECTED PRN PFSH Active Problems Active Problems: Problem Status Onset Code Dislocation of right shoulder joint S43.004A 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 Benign paroxysmal positional vertigo of left ear H81.12 Vertigo R42 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 C67.9 Hematuria R31.9 Liver mass R16.0 PVCs (premature ventricular contractions) I49.3 Family history of colon cancer Z80.0 Abnormal MRI, liver R93.2 Urinary frequency R35.0 Abdominal pain R10.9 Nocturia more than twice per night R35.1 Shoulder pain, right M25.511 Sensorineural hearing loss, unilateral 10/26/16 H90.5 Polyp of colon 02/07/13 K63.5 Hyperlipidemia E78.5 Hemorrhoid K64.9 Ganglion and cyst of synovium, tendon and bursa 11/27/13 M67.49, M67.89, M71.39 Generalized osteoarthrosis M15.9 Essential hypertension 11/10/13 I10 Conductive hearing loss, unilateral 03/12/14 H90.2 Chronic serous otitis media, left ear 10/26/16 H65.22 Medical History Medical History Actinic keratosis, hx of Colon polyps Ganglion cyst of wrist Hearing loss Hip pain (10/04/95) History of serous otitis media Hyperlipidemia Hypertension Osteoarthritis Surgical History Surgical History Colonoscopy - IV Sedation 2006; NEG 2012; TUBULAR ADENOMA Colonoscopy - MAC (02/05/18) Hemorrhoidal Banding (02/05/18) History of bladder surgery 06/2021 Dr. Garza Hysterectomy, Laproscopic (~1977) Tobacco Smoking/Tobacco Use Status: Never Alcohol Alcohol Intake: never Substance Use Substance use: Never Substance use type: does not use Vital Signs and Lab Results Vital Signs Most Recent Vital Signs in EMR: Most Recent Vital Signs Temp Pulse Resp BP Pulse Ox 35.6 C L 78 20 161/84 H 99 12/01/21 07:39 12/01/21 07:39 12/01/21 07:39 12/01/21 07:39 12/01/21 07:39 Lab Results Blood Type / Crossmatch: No Data to Display Complete Blood Count: 2 No Data to Display Complete Metabolic Panel: No Data to Display Liver Function Panel: No Data to Display Coagulation Panel: No Data to Display Cardiac Panel: No Data to Display Arterial Blood Gas: No Data to Display Venous Blood Gas: No Data to Display Pancreas Panel: No Data to Display Thyroid Panel: No Data to Display Infectious Disease: Coronavirus (COVID-19)(PCR) Negative (Negative) 11/29/21 08:10 11/29/21 Coronavirus 2019 Source Nasal/Nares 11/29/21 08:10 11/29/21 Blood Cultures: No Data to Display Toxicology Panel: No Data to Display Anesthesia Assessment and Plan Anesthesia History Personal History: No History of Anesthesia Complications Family History: No Family History of Anesthesia Complications Exercise Tolerance Exercise Tolerance: Metabolic Equivalents>4 Pertinent Negatives Pertinent Negatives: No Symptoms of GERD Cardiac & Pulmonary Exam Cardiac Exam: Normal S1/S2 Heart Sounds Pulmonary Exam: Clear Bilateral Breath Sounds Implantable Cardiac Device Does patient have a Pacemaker or an ICD?: No Airway Exam Known Difficult Airway: No Mallampati Class: 2 Mouth Opening: Normal (> 3cm) Thyromental Distance: Greater than 3 cm Neck Range of Motion: Full ROM Neck Circumference: Normal Teeth Condition: Removable Dentures/Plates Upper ASA Classification ASA Score: ASA 2 Emergency Case?: No NPO Status NPO Status: NPO Clears >2 hours, Solids >8 hours Anesthesia Plan Resuscitation Status: Full Code Anesthesia Technique: General Anesthesia Airway Planned: Natural Airway Monitors Used: Standard Monitors
[2021-12-01] MEDS: Lactated Ringers 1,000 ML 80 ML IV (07:57)
--- NOTE | 2021-12-01 08:15 | HPE_ITS ---
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 She also had carcinoma in situ. She was treated with transurethral resection followed by an induction series of intravesical BCG. She presents for her first surveillance cystoscopy after completion of the BCG. She has had no gross hematuria since completing the treatments. She did have blood for about 24 hours after her final BCG treatment. On surveillance cystoscopy, there was a 2 cm erythematous area adjacent to her prior TUR site. The area's appearance is concerning for carcinoma in situ. She presents for TURBT. Review of Systems Narrative: No fevers or chills Decreased hearing acuity. No vision change or dysphasia No diabetes or thyroid No shortness of breath, cough or hemoptysis No chest pain or palpitations No nausea, vomiting, hepatitis, ulcers, jaundice No seizures, strokes or peripheral neuropathy No bleeding disorders or anemia Working with PT for right arm. 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 [ ] Shoulder pain, right (Chronic) working with PT, improved (01/2019) Sensorineural hearing loss, unilateral (Chronic 10/26/16) Polyp of colon (Acute 02/07/13) DR. 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 Garza Hysterectomy, Laproscopic (~1977) Family History Mother , OLD AGE at age 82. Heart disease Father , OLD AGE at age 84. Heart disease Sister Neoplasm KIDNEY Sister Neoplasm COLON Sister No problems noted. Sister Essential hypertension Neoplasm Sister Hyperlipidemia Sister Hyperlipidemia Brother Acute type B viral hepatitis Essential hypertension Brother , ACCIDENTAL at age 13. No problems noted. Brother , SUICIDE at age 70. Depression Sister Diabetes Social History Smoking/Tobacco Use Status: Never Smoking risk assessment performed?: Yes Alcohol Intake: never Drug use: Never Substance use type: does not use Household members: spouse Housing: house Number of Children: 0 current occupation: [employer] Pets and animals: No What type of physical activity do you participate in: walking Duration: 45-60 minutes/day Frequency: daily Summer/Oriental Orthodox: Sabianist Special summer needs: No Working smoke detector in home: Yes Fire extinguisher in home: Yes Carbon monox detector in home: Yes Do you feel safe at home: Yes Do you feel safe in your relationship?: Yes Additional Social history: Spouse in room Meds Allergies and Home Medications Allergies Allergy/AdvReac Type Severity Reaction Status Date / Time Sulfa (Sulfonamide Allergy Severe RASH ALL Verified 11/30/21 08:45 Antibiotics) OVER BODY Home Medications Medication Instructions Recorded Confirmed Type calcium carbonate-vitamin D3 1 ea PO DAILY 11/25/13 12/01/21 History [Calcium 600 with Vitamin D3] multivitamin [Daily Multi-Vitamin] 1 ea PO DAILY 11/25/13 12/01/21 History garlic 500 mg PO DAILY 08/27/14 12/01/21 History psyllium seed (sugar) oral powder 1 tsp PO DAILY gm 10/28/19 12/01/21 History acetaminophen 500 mg capsule 500 mg PO QAM cap 02/08/21 12/01/21 History incontinence pad, liner, disp #100 ea 02/08/21 10/27/21 Rx lisinopril 20 mg tablet 20 mg PO DAILY #90 tab-cap 02/08/21 12/01/21 Rx simvastatin 40 mg tablet 40 mg PO HS #90 tab-cap 02/08/21 12/01/21 Rx amlodipine 2.5 mg tablet 2.5 mg PO DAILY #90 tab 07/22/21 12/01/21 Rx Exam Const General: cooperative and comfortable Neck Neck: supple Resp Effort & Inspection: normal respiratory effort Auscultation: clear to auscultation bilaterally Cardio Rate: regular rate Rhythm: regular rhythm GI Palpation: soft and no masses Neuro General: patient alert, patient awake and patient oriented x3 Results Last Vital Signs Temp 35.6 C L 12/01/21 07:39 Pulse 78 12/01/21 07:39 Resp 20 12/01/21 07:39 BP 161/84 H 12/01/21 07:39 Pulse Ox 99 12/01/21 07:39
[2021-12-01 08:43] VITALS: BMI 24.4
[2021-12-01] MEDS: ceFAZolin 2 GM/50 ML BAG IVPB (08:49)
[2021-12-01] MEDS: Lidocaine 2% Jelly 6 ML SYR (09:00)
--- NOTE | 2021-12-01 09:04 | BLADDER_PTH ---
PATIENT: Clover Mendez I LOC: [facility] U#:[id number] AGE/SX: 86/F ROOM: RE12/01/[address]: José Garza MD : 1935 BED: DIS: 12/01/2021 SPEC #: [id number] RECD: 12/01/21 12:32 STATUS: RUBÉN RE #: [id number] RAYNE: 12/01/21 09:[address]: José Garza DEPT: Surgical Specimen RECD BY: Melissa Herndon ENTERED: 12/01/21 12:32 SP TYPE: Bladder OTHR DR: Jasmine Lorenzana APRN Tissues: 1 - BLADDER BIOPSY Procedures: GROSS AND MICRO LEVEL 4 IMMUNOPEROXIDASE STAIN SPECIAL STAIN 1 Comments: [id number]
--- NOTE | 2021-12-01 09:08 | W.PM.DSUDISC ---
Discharge Plan Disposition Patient Disposition: HOME Condition: Stable Discharge Details Reason For Visit: bladder cancer Attending Provider: José Garza Primary Care Provider: Jasmine Lorenzana Home Meds and New Rx's Prescriptions: No Action Metamucil (sugar) Powder 1 tsp PO DAILY RF: 0 amlodipine 2.5 mg tablet 2.5 mg PO DAILY Qty: 90 RF: 3 acetaminophen 500 mg capsule 500 mg PO QAM RF: 0 lisinopril 20 mg tablet 20 mg PO DAILY Qty: 90 RF: 4 simvastatin 40 mg tablet 40 mg PO HS Qty: 90 RF: 4 (DME) Bladder Control Pad Pad See Rx Instructions .ROUTE .MEDSUPPLY Qty: 100 RF: 0 multivitamin [Daily Multi-Vitamin] 1 EACH tablet 1 ea PO DAILY RF: 0 calcium carbonate-vitamin D3 [Calcium 600 with Vitamin D3] 1 EACH tablet 1 ea PO DAILY RF: 0 garlic 1,000 MG capsule 500 mg PO DAILY RF: 0 Discharge Instructions Additional Instructions: Followup 2 weeks for path results Activity:: Activity as Tolerated Shower/Bathe:: 24 hours Diet:: As Tolerated Discharge Orders Discharge Orders: Discharge Order (Routine); Ordered 12/01/21 Ordered By: José Garza DS: Diagnosis Discharge Diagnosis (1) 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
--- NOTE | 2021-12-01 09:11 | ROE_ITS ---
Date of service: 12/01/21 Time of Service: 09:12 Operative Note Operative Note DATE OF PROCEDURE: 12/01/21 PRE-OP DIAGNOSIS: Bladder cancer POST-OP DIAGNOSIS: same PROCEDURE: cystoscopy, TURBT (less than 2 cm) SURGEON: José Garza ANESTHESIA TYPE: Local By Surgeon and General:No Airway Refer to Anesthesia Record ESTIMATED BLOOD LOSS: 10 PATHOLOGY: other (bladder tumor) COMPLICATIONS: None Patient was transported to: same day Patient's condition: stable Implants: none Indications: This is an 86-year-old woman with a previous diagnosis of high- grade urothelial cell carcinoma of the bladder. The muscularis was not involved, but the lamina propria had involvement. He was treated with an induc tion course of intravesical BCG. On surveillance cystoscopy, we identified an erythematous patch adjacent to her previous resection site. Visually, I was concerned about the presence of carcinoma in situ or recurrent tumor. She presents for repeat transurethral resection. Findings: 2 cm erythematous patch on the right posterior bladder wall Procedure Description: The patient was brought to the operating room on 12/01/2021. She was given preoperative IV antibiotics. After successful induction of general anesthesia without intubation, she was placed in the dorsal lithotomy position. Her genitalia was prepped and draped. 2% Xylocaine jelly was then instilled into the urethra. A 24 Bengali res ectoscope sheath was passed through the urethra into the bladder. I used the visual obturator to inspect the bladder. Both ureteral orifices appeared normal. Adjacent to the right ureteral orifice, there was a scar from the previous resection. Just posterior to this area there was a possible erythematous area of mucosa. No papillary or nodular lesions were identified. The erythematous area measured less than 2 cm in largest dimension. I then used an Genesant resectoscope with bipolar cautery to perform transurethral resection of the erythematous mucosa. The mucosa was sent to pathology for permanent section. I then cauterized the resection site using the coagulation current. The patient tolerated the procedure well with no complications.
[2021-12-01 09:15] VITALS: BP 134/67; PULSE 64; RESP 16; TEMP 35.8; O2SAT 98
[2021-12-01] MEDS: Phenazopyridine 200 MG TAB PO (09:32)
[2021-12-01 09:45] VITALS: BP 163/66; PULSE 67; RESP 16; TEMP 36; O2SAT 100
--- NOTE | 2021-12-01 10:08 | W.ANESPOSTOP ---
Postoperative Evaluation Date, Time and Location Date Performed: 12/01/21 Time Performed: 10:08 Patient Location: Day Surgery Unit Vital Signs Most Recent Imported Vital Signs: Most Recent Vital Signs Temp Pulse Resp BP Pulse Ox 35.6 C L 78 20 161/84 H 99 12/01/21 07:39 12/01/21 07:39 12/01/21 07:39 12/01/21 07:39 12/01/21 07:39 Pain Score Most Recent Pain Score: Most Recent Pain Score Pain Level 0 12/01/21 07:39 Assessment Mental Status: Awake (Alert & Oriented to Patient Baseline) Airway and Respiratory Function: Patent airway with normal (patient baseline) respiratory exam Cardiovascular Function: Hemodynamically Stable Hydration Status: Adequately Hydrated Nausea & Vomiting: No Nausea or Vomiting Pain: Pt. Denies Any Pain Peripheral Nerve Block: Patient did not receive a nerve block Postoperative Comments:: Patient seen twice earlier in DSU. No complaints no questions.
== END 2021-12-01 10:10 | disposition home or self-care (01) ==
PROVIDERS: PCP Nurse Practitioner; Visit Provider Urology
PROC: 0TJB8ZZ Inspection of Bladder, Via Natural or Artificial Opening Endoscopic (ICD-10-PCS; CPT 52000; principal; 2021-12-01 08:45)
DX: D30.3 Benign neoplasm of bladder (principal); N30.20 Other chronic cystitis without hematuria; Z85.51 Personal history of malignant neoplasm of bladder; I10 Essential (primary) hypertension; E78.5 Hyperlipidemia, unspecified
CPT/HCPCS: 52234; 88305; 88312; 88361; J0690; J1100; J2405

== ENCOUNTER → 2021-12-13 10:49 | Outpatient (BNVA) | payer MEDICARE, OTHER, SELFPAY | PROVIDERS: PCP Nurse Practitioner; Referring Provider Student in an Organized Health Care Education/Training Program; Visit Provider Urology | DX: C67.9 Malignant neoplasm of bladder, unspecified (principal) | CPT/HCPCS: 99214 ==

== ENCOUNTER → 2021-12-21 10:16 | Outpatient (BNVA) | payer MEDICARE, OTHER, SELFPAY | PROVIDERS: PCP Nurse Practitioner; Referring Provider Nurse Practitioner; Visit Provider Student in an Organized Health Care Education/Training Program | DX: S43.004A Unspecified dislocation of right shoulder joint, initial encounter (principal); S46.011A Strain of muscle(s) and tendon(s) of the rotator cuff of right shoulder, initial encounter; W00.0XXA Fall on same level due to ice and snow, initial encounter | CPT/HCPCS: 99214 ==

== ENCOUNTER → 2022-02-28 09:48 | Outpatient (BNVA) | payer MEDICARE, OTHER, SELFPAY | PROVIDERS: PCP Nurse Practitioner; Referring Provider Nurse Practitioner; Visit Provider Student in an Organized Health Care Education/Training Program | DX: S43.004A Unspecified dislocation of right shoulder joint, initial encounter (principal); S46.011A Strain of muscle(s) and tendon(s) of the rotator cuff of right shoulder, initial encounter; X58.XXXA Exposure to other specified factors, initial encounter | CPT/HCPCS: 99213 ==

== ENCOUNTER → 2022-03-14 08:45 | Outpatient (BNVA) | payer MEDICARE, OTHER, SELFPAY | PROVIDERS: PCP Nurse Practitioner; Referring Provider Nurse Practitioner; Visit Provider Urology | DX: C67.9 Malignant neoplasm of bladder, unspecified (principal); R35.0 Frequency of micturition; R35.1 Nocturia | CPT/HCPCS: 52000; 81003 ==

== ENCOUNTER 2022-03-14 10:34 | Outpatient (REF) | payer MEDICARE, OTHER, SELFPAY ==
--- NOTE | 2022-03-14 09:45 | PAPNONF_PTH ---
PATIENT: Clover Mendez I LOC: [facility] U#:[id number] AGE/SX: 86/F ROOM: RE03/14/[address]: José Garza MD : 1935 BED: DIS: 03/14/2022 SPEC #: [id number] RECD: 03/14/22 13:06 STATUS: RUBÉN REIris #: [id number] RAYNE: 03/14/22 09:[address]: José Garza DEPT: [facility] Cytology RECD BY: Melissa Herndon ENTERED: 03/14/22 13:07 SP TYPE: RODRIGUEZ GRAF DR: Jasmine Lorenzana APRN Tissues: 1 - BODY FLUID CYTO(SPUTUM/URINE)[facility] Procedures: BODY FLUID CYTO(URINE/SPUTUM) Comments: [id number] (TOTAL VOLUME = 70 ml) (35 ml URINE & 35 ml CYTOLYT ADDED IN 2 CONTAINERS)
== END 2022-03-14 10:35 | disposition home or self-care (01) ==
LOC: LBN 10:34
PROVIDERS: PCP Nurse Practitioner; Visit Provider Urology
DX: C67.9 Malignant neoplasm of bladder, unspecified (principal)
CPT/HCPCS: 88104

== ENCOUNTER → 2022-06-13 12:46 | Outpatient (BNVA) | payer MEDICARE, OTHER, SELFPAY | PROVIDERS: PCP Nurse Practitioner; Referring Provider Nurse Practitioner; Visit Provider Urology | DX: C67.9 Malignant neoplasm of bladder, unspecified (principal); R35.0 Frequency of micturition; R35.1 Nocturia | CPT/HCPCS: 52000; 81003 ==

== ENCOUNTER 2022-06-13 13:27 | Outpatient (REF) | payer MEDICARE, OTHER, SELFPAY ==
--- NOTE | 2022-06-13 13:00 | PAPNONF_PTH ---
PATIENT: Clover Mendez I LOC: [facility] U#:[id number] AGE/SX: 87/F ROOM: RE06/13/[address]: José Garza MD : 1935 BED: DIS: 06/13/2022 SPEC #: [id number] RECD: 06/13/22 18:10 STATUS: RUBÉN REQ #: [id number] RAYNE: 06/13/22 13:[address]: José Garza DEPT: [facility] Cytology RECD BY: Melissa Herndon ENTERED: 06/13/22 18:11 SP TYPE: RODRIGUEZ GRAF DR: Jasmine Lorenzana APRN Tissues: 1 - BODY FLUID CYTO(SPUTUM/URINE)[facility] Procedures: BODY FLUID CYTO(URINE/SPUTUM) Comments: [id number] (TOTAL VOLUME = 45 ml) (45 ml URINE & 45 ml CYTOLYT ADDED)
== END 2022-06-13 13:28 | disposition home or self-care (01) ==
LOC: LBN 13:27
PROVIDERS: PCP Nurse Practitioner; Visit Provider Urology
DX: C67.9 Malignant neoplasm of bladder, unspecified (principal)
CPT/HCPCS: 88104

== ENCOUNTER 2022-08-01 03:12 | Outpatient (CLI) | payer MEDICARE, OTHER, SELFPAY ==
[2022-08-01 08:49] LABS: ALT 31 U/L (14-59); AST 28 U/L (15-37); Albumin 3.9 g/dL (3.4-5.0); Alkaline Phosphatase 60 U/L (46-116); Anion Gap 7.9 mmol/L (3-11); BUN 15 mg/dL (7-18); Bilirubin, Total 0.6 mg/dL (0.2-1.0); CO2 30.1 mmol/L (21.0-32.0); CREATININE 0.9 mg/dL (0.55-1.02); Calcium 9.3 mg/dL (8.5-10.1); Calculated LDL 136 mg/dL (<100); Chloride 98 mmol/L (98-107); Cholesterol 238 mg/dL (<200); Estimated GFR 62.65 (mL/min/1.73m2); Glucose 105 mg/dL (74-106); HDL Cholesterol 63 mg/dL (40-60); Sodium 136 mmol/L (136-145); Total Protein 6.9 g/dL (6.4-8.2); Triglyceride 197 mg/dL (<150)
== END 2022-08-01 03:13 | disposition home or self-care (01) ==
PROVIDERS: PCP Nurse Practitioner; Visit Provider Nurse Practitioner
DX: I10 Essential (primary) hypertension (principal); R16.0 Hepatomegaly, not elsewhere classified
CPT/HCPCS: 36415; 80053; 80061

== ENCOUNTER → 2022-08-29 01:38 | Outpatient (CLI) | payer MEDICARE, OTHER, SELFPAY ==
--- NOTE | 2022-08-29 06:30 | DI.US_ITS ---
Exam(s) US ABDOMEN EXAM: US ABDOMEN CLINICAL HISTORY: f/u 12mm right lobe liver lesion,k76.9 TECHNIQUE: Ultrasound of complete upper abdomen performed using standard protocol. COMPARISON: US US ABDOMEN LIMITED from 10/16/[address] CHEST PE CTA from 10/31/2021 FINDINGS: There is no ascites evident. LIVER: Liver is hyperechoic indicating element of steatosis. In the right hepatic lobe there is a mi ldly hyperechoic nodule measuring 1.8 x 1.1 cm, probably a cavernous hemangioma. GALLBLADDER/BILIARY: There are no gallstones. No gallbladder wall edema nor pericholecystic fluid. The common hepatic duct isnot dilated, measuring 3-4mm at the level of vitor hepatis. PANCREAS: There is no evidence of pancreatic mass nor dilatation of the pancreatic duct. SPLEEN: The spleen is not enlarged and there are no intrasplenic lesions evident. KIDNEYS:There is 1 small cyst in each kidney. This cyst in the right kidney measures 12 x 15 millime ters and cyst in the left kidney measures 8 x 11 millimeters. No solid renal masses evident. No hyd ronephrosis. ABDOMINAL AORTA: There is no evidence of abdominal aortic aneurysm. IVC: Normal diameter where visualized. IMPRESSION: 1. No evidence of cholelithiasis nor dilatation of the biliary tree. 2. There is a faint hyperechoic nodule in liver measuring 1.8 x 1.1 cm, probably a cavernous hemangi radha. Recommend follow-up contrast infused MRI. 3. Single small benign cyst in each kidney. No solid renal masses. DATA REPOSITORY:
== END ==
PROVIDERS: PCP Nurse Practitioner; Visit Provider Nurse Practitioner
DX: K76.9 Liver disease, unspecified (principal); N28.1 Cyst of kidney, acquired
CPT/HCPCS: 76700

== ENCOUNTER → 2022-09-12 08:32 | Outpatient (BNVA) | payer MEDICARE, OTHER, SELFPAY | PROVIDERS: PCP Nurse Practitioner; Referring Provider Nurse Practitioner; Visit Provider Urology | DX: C67.9 Malignant neoplasm of bladder, unspecified (principal); R35.0 Frequency of micturition; R35.1 Nocturia | CPT/HCPCS: 52000; 81003 ==

== ENCOUNTER 2022-09-12 09:31 | Outpatient (REF) | payer MEDICARE, OTHER, SELFPAY ==
--- NOTE | 2022-09-12 09:00 | PAPNONF_PTH ---
PATIENT: Clover Mendez I LOC: [facility] U#:[id number] AGE/SX: 87/F ROOM: RE09/12/[address]: José Garza MD : 1935 BED: DIS: 09/12/2022 SPEC #: [id number] RECD: 09/12/22 12:07 STATUS: RUBÉN REQ #: [id number] RAYNE: 09/12/22 09:[address]: José Garza DEPT: [facility] Cytology RECD BY: Angelic Burgos ENTERED: 09/12/22 12:08 SP TYPE: RODRIGUEZ GRAF DR: Jasmine Lorenzana APRN Tissues: 1 - BODY FLUID CYTO(SPUTUM/URINE)[facility] Procedures: BODY FLUID CYTO(URINE/SPUTUM) Comments: [id number] (TOTAL VOLUME = 172 cc) (REFRIGERATED) (86 cc URINE & 86 cc CYTOLYT ADDED IN 2 CONTAINERS)
== END 2022-09-12 09:32 | disposition home or self-care (01) ==
LOC: LBN 09:31
PROVIDERS: PCP Nurse Practitioner; Visit Provider Urology
DX: C67.9 Malignant neoplasm of bladder, unspecified (principal)
CPT/HCPCS: 88104

== ENCOUNTER 2023-02-22 02:56 | Outpatient (CLI) | payer MEDICARE, OTHER, SELFPAY ==
--- NOTE | 2023-02-22 07:00 | DI.MAMMO_ITS ---
Exam(s) MAMMO SCREENING EXAM: MAMMO SCREENING CLINICAL HISTORY: screening,z12.39 TECHNIQUE: Mammograms were interpreted according to the usual protocol including computer analysis w [employer] CAD system, tomosynthesis and C-view imaging. COMPARISON: 2013 through 2020 FINDINGS: The breasts are composed of scattered fibroglandular densities, Breast Density category B. No suspicious masses or suspicious microcalcifications are seen. No skin thickening or abnormal axillary lymph nodes are seen. There has been no significant change from prior exams. IMPRESSION: BI-RADS Category 1, Negative mammogram Yearly screening mammography is recommended. Breast Density - Category B, scattered fibroglandular densities. A negative radiographic report should not delay biopsy if a dominant or clinically suspicious mass is present. Up to ten percent of cancers are not identified on mammography. A negative report may reinforce clinical impression. Adenosis and dense breasts may obscure an underlying neoplasm. False positive reports average 6 to 10%. Patient will receive a letter notifying them of these results.
== END 2023-02-22 03:16 ==
PROVIDERS: PCP Nurse Practitioner; Visit Provider Nurse Practitioner
DX: Z12.31 Encounter for screening mammogram for malignant neoplasm of breast (principal)
CPT/HCPCS: 77063; 77067

== ENCOUNTER → 2023-03-13 08:39 | Outpatient (BNVA) | payer MEDICARE, OTHER, SELFPAY | PROVIDERS: PCP Nurse Practitioner; Visit Provider Urology | DX: R35.1 Nocturia; C67.9 Malignant neoplasm of bladder, unspecified | CPT/HCPCS: 52000; 81003 ==

== ENCOUNTER 2023-06-18 03:45 | Outpatient (CLI) | payer MEDICARE, OTHER, SELFPAY ==
[2023-06-18 08:06] LABS: HCT 42.1 % (36.0-46.0); MCH 31.1 pg (27.0-33.0); MCHC 33.3 % (32.0-36.0); MCV 94 fL (80-95); MPV 10.5 fL (8.0-11.0); Platelet Count 193 10^3/uL (130-400); RDW 12.4 % (11.7-14.6); RDW-SD 42.7 fL; WBC 5.21 10^3/uL (4.4-10.8)
[2023-06-18 08:29] LABS: ALT 28 U/L (14-59); AST 23 U/L (15-37); Albumin 3.8 g/dL (3.4-5.0); Alkaline Phosphatase 61 U/L (46-116); BUN 14 mg/dL (7-18); Bilirubin, Total 0.5 mg/dL (0.2-1.0); Calcium 9.1 mg/dL (8.5-10.1); Calculated LDL 128 mg/dL (<100); Chloride 101 mmol/L (98-107); Cholesterol 239 mg/dL (<200); Estimated GFR 54.87 (mL/min/1.73m2); Glucose 111 mg/dL (74-106); HDL Cholesterol 64 mg/dL (40-60); Potassium 4.1 mmol/L (3.5-5.1); Sodium 138 mmol/L (136-145); Total Protein 6.6 g/dL (6.4-8.2); Triglyceride 239 mg/dL (<150)
== END 2023-06-18 03:46 | disposition home or self-care (01) ==
LOC: LBO 03:45
PROVIDERS: PCP Nurse Practitioner; Visit Provider Nurse Practitioner
DX: I10 Essential (primary) hypertension (principal); E78.5 Hyperlipidemia, unspecified
CPT/HCPCS: 36415; 80053; 80061; 85027

== ENCOUNTER 2023-08-22 15:27 | Emergency (ER) | payer MEDICARE, OTHER, SELFPAY ==
[2023-08-22 15:37] VITALS: BP 190/71; PULSE 84; RESP 18; TEMP 36.7; O2SAT 98
--- NOTE | 2023-08-22 15:45 | DI.CT_ITS ---
Exam(s) CT THORACIC LUMBAR SPINE WO EXAM: CT THORACIC LUMBAR SPINE WO CLINICAL HISTORY: fall, midline low thoracic/high lumbar TTP. TECHNIQUE: Imaging Protocol: Axial computed tomography images with coronal and sagittal reformatted images were created and reviewed. CONTRAST MATERIAL: None COMPARISON: No exams were available for comparison FINDINGS: Thoracic spinal column: There is a compression fracture of T11 vertebral body superior endplate with approximately 20 percent height loss. Acute appearance. No retropulsed cortex. No canal compromise. No facet malalignment . Lumbosacral spinal column: No evidence of fractures. No facet malalignment. No disc space narrowing.. IMPRESSION: 20 percent acute appearing compression fracture of T11 vertebral body. No retropulsed fragments. No acute compromise of the spinal canal at this level. Called by myself to ER physician. RADIATION DOSE DELIVERED: Total DLP DATA REPOSITORY: All CT scans at this facility are submitted to the National Radiology Data Registry (NRDR) Dose Index Registry (DIR) with the [employer] (ACR). RADIATION OPTIMIZATION: All CT scans at this facility use at least one of these dose optimization te chniques: automated exposure control; mA and/or kV adjustment per patient size (includes targeted exa ms where dose is matched to clinical indication); or iterative reconstruction.
--- NOTE | 2023-08-22 16:03 | W.ED.GENAD ---
Discharge Plan Disposition Patient Disposition: Home Condition: Good Discharge Details Clinical Impression: Compression fracture of thoracic vertebra Primary Care Provider: Jasmine Lorenzana ED Provider: Vida López Home Meds and New Rx's Prescriptions: No Action amlodipine 2.5 mg tablet 2.5 mg PO DAILY Qty: 90 3RF lisinopril 20 mg tablet 20 mg PO DAILY Qty: 90 4RF Rx Instructions: 1 TAB DAILY simvastatin 40 mg tablet 40 mg PO HS Qty: 90 4RF Rx Instructions: take a whole pill every evening ibuprofen [Advil] 200 mg tablet 200 mg PO BID PRN multivitamin [Daily Multi-Vitamin] 1 EACH tablet 1 ea PO DAILY calcium carbonate-vitamin D3 [Calcium 600 with Vitamin D3] 1 EACH tablet 1 ea PO DAILY garlic 1,000 MG capsule 500 mg PO DAILY Discharge Instructions Instructions: Vertebral Compression Fracture (ED) Additional Instructions: Take tylenol and ibuprofen over the counter for pain; follow the directions on the bottle. Followup with orthopedics- they will call to schedule an appointment. Return to the emergency department for new or worsening symptoms including numbness, weakness, bowel or bladder incontinence, or if you have any other concerns. Referrals: [facility] [Provider Group] Jasmine Lorenzana NP [Primary Care Provider] - Medical Decision Making 88yo female with hx HTN presenting with acute back pain and right hip pain after mechanical fall from standing yesterday. History from patient and spouse at bedside. Able to ambulate afterwards. Today with persistent pain. Hypertensive on arrival, vital signs otherwise reassuring. Normal neurologic exam, no LOC, no anticoagulation, not hemotympanum; no concerned for acute intracranial hemmoraghe, will not get head CT. Physical exam with midline low thoracic spinal tenderness, otherwise no significant traumatic findings. Low suspicion for serious intrathoracic/abdominal/pelvic injury; will not get full trauma CT or labs. Midline tenderness is concerning for potential vertebral fracture; will get CT thoracic and lumbar spine as well as pelvic/hip XR given hip pain. Will treat pain with tylenol, toradol here. Plain films independently reviewed, no displaced fracture on my view, agree with radiology read below. CT independently reviewed, thoracic compression fracture, agree with radiology read below. On reassessment patient reports pain well controlled, able to ambulate easily independently without difficulty. Advised tylenol and ibuprofen at home, orthopedic followup. Advised to followup with her PCP regarding blood pressure. Discharged home; discharge instructions including return precautions were reviewed with patient who verbalized understanding. All questions were answered and they are in full agreement with the plan. Imaging Data Radiologic Study: Imaging: CT Scan Radiologist's impression: IMPRESSION: 20 percent acute appearing compression fracture of T11 vertebral body. No retropulsed fragments. No acute compromise of the spinal canal at this level. Radiologic Study #2: Imaging: X-Ray Radiologist's impression: IMPRESSION: No fractures evident. HPI General Mode of arrival: ambulatory. Date/Time Provider Initiated Documentation: 08/22/23 15:37. Limitations to Documentation: no limitations. Information obtained by: patient and family. HPI Narrative: 88yo female with hx HTN presenting with acute back pain and right hip pain after a fall yesterday. Slipped and fell onto her right knee and then her right side, struck her head lightly, did not pass out. Was able to get up and walk afterwards. Pain started yesterday at the time of the event and has persisted, feels somewhat worse today. Took 1 motrin at home this morning with some improvement. No numbness, tingling, or weakness. No bowel/bladder issues. She is otherwise in her usual state of health with no fevers, chill, rash, headache, neck pain, nausea, vomiting, abdominal pain, extremity pain, or other concerns. Related Data Home Medications Medication Instructions Recorded Confirmed calcium carbonate 600 mg-vitamin 1 ea PO DAILY 11/25/13 08/08/23 D3 5 mcg (200 unit) tablet (Calcium 600 with Vitamin D3) multivitamin (Daily Multi-Vitamin 1 ea PO DAILY 11/25/13 08/08/23 tablet) garlic 1,000 mg capsule 500 mg PO DAILY 08/27/14 08/08/23 ibuprofen 200 mg tablet (Advil) 200 mg PO BID PRN 02/07/22 08/08/23 amlodipine 2.5 mg tablet 2.5 mg PO DAILY #90 tabs 08/08/23 08/08/23 lisinopril 20 mg tablet 20 mg PO DAILY #90 tab-caps 08/08/23 08/08/23 simvastatin 40 mg tablet 40 mg PO HS #90 tab-caps 08/08/23 08/08/23 Previous Rx's Medication Instructions Recorded amlodipine 2.5 mg tablet 2.5 mg PO DAILY #90 tabs 08/08/23 lisinopril 20 mg tablet 20 mg PO DAILY #90 tab-caps 08/08/23 simvastatin 40 mg tablet 40 mg PO HS #90 tab-caps 08/08/23 Allergies Allergy/AdvReac Type Severity Reaction Status Date / Time Sulfa (Sulfonamide Allergy Severe RASH ALL Verified 08/22/23 15:40 Antibiotics) OVER BODY General Stated Complaint: Nk/Back Pain KIRSTEN: 3 Review of Systems Narrative: see HPI PFSH All Active Problems (Updated 08/22/23 @ 18:16 by Vida López MD) Compression fracture of thoracic vertebra (Acute) Hyperlipidemia (Acute) Traumatic tear of right rotator cuff (Acute 10/20/21) Dislocation of right shoulder joint (Acute 10/20/21) Benign paroxysmal positional vertigo of left ear (Acute) Vertigo (Acute) 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 KEYANA CERVANTES; TUBULAR ADENOMA family h/o colon ca PVCs (premature ventricular contractions) Shoulder pain, right working with PT, improved (01/2019) Surgical History Colonoscopy - IV Sedation 2006; NEG 2012; TUBULAR ADENOMA Colonoscopy - MAC (02/05/18) Hemorrhoidal Banding (02/05/18) History of bladder surgery 06/2021 Dr. Garza Hysterectomy, Laproscopic (~1977) Family History Mother , OLD AGE at age 82. Heart disease Father , OLD AGE at age 84. Heart disease Sister Neoplasm KIDNEY Sister Neoplasm COLON Sister No problems noted. Sister Essential hypertension Neoplasm Sister Hyperlipidemia Sister Hyperlipidemia Brother Acute type B viral hepatitis Essential hypertension Brother , ACCIDENTAL at age 13. No problems noted. Brother , SUICIDE at age 70. Depression Sister Diabetes Social History Smoking/Tobacco Use Status: Never Smoking risk assessment performed?: Yes Alcohol Intake: never Drug use: Never Substance use type: does not use Household members: spouse Housing: house Number of Children: 0 current occupation: [employer] Pets and animals: No Current gender identity: female What type of physical activity do you participate in: walking Duration: 45-60 minutes/day Frequency: daily Summer/Restoration: Evangelical Special summer needs: No Working smoke detector in home: Yes Fire extinguisher in home: Yes Carbon monox detector in home: Yes Do you feel safe at home: Yes Do you feel safe in your relationship?: Yes Additional Social history: Spouse in room Exam Narrative Exam Narrative: GENERAL: Alert, in no acute distress SKIN: Warm and well perfused. No rashes, bruises, discolorations or abrasions. HEAD: Atraumatic, normocephalic without edema, discoloration or evidence of trauma. Facial bones without deformities or tenderness. EYES: PERRL. No scleral icterus or conjunctival injection. Extraocular muscles intact without nystagmus or diplopia. EARS: No hemotympanum. NOSE: No discharge, tenderness, laxity. No nasal septal hematoma. MOUTH: No malocclusion or trismus. Moist mucus membranes without blood. NECK: Trachea midline. No discolorations or edema. CV: Regular rate and rhythm, Normal s1 and s2. No murmurs, rubs, or gallops. PV: Radial pulses 2+ bilaterally and symmetric. Dorsalis pedis pulses 1+ bilaterally and symmetric. 2+ capillary refill. No extremity edema. CHEST: No abrasions or ecchymosis. Chest symmetric with respirations. No chest wall tenderness. No crepitus. No step offs. Lungs are clear to auscultation bilaterally. ABDOMEN: No ecchymosis or abrasions. Soft, nondistended, nontender. . BACK: No abrasions, skin openings, or ecchymosis. Low thoracic and high lumber midline spinal tenderness, no step offs. No cervical spinal tenderness. PELVIC: Pelvis stable, nontender to lateral compression : Normal external genitalia MSK: No gross deformities or discolorations or lesions. Tolerates full range of motion of extremities without tenderness. Neuro: GCS 15. PERRL. EOMI. Fluent speech, no dysarthria. Normal sensation in V1, V2, and V3 segments bilaterally. No asymmetry. Motor- 5/5 strength symmetric bilateral upper and lower extremities i Sensation- Intact to light touch and symmetric multiple dermatomes including upper and lower extremities Gait/station: Normal stance. No truncal ataxia. Steady gait with equal normal steps Course Vital Signs Vital signs: Vital Signs Temperature 36.7 C 08/22/23 15:37 Pulse 84 08/22/23 15:37 Respiratory Rate 18 08/22/23 15:37 Blood Pressure 190/71 H 08/22/23 15:37 Pulse Oximetry 98 08/22/23 15:37 Temperature 36.7 C 08/22/23 15:37 Temperature Source Skin 08/22/23 15:37 Pulse 84 08/22/23 15:37 Respiratory Rate 18 08/22/23 15:37 Respiratory Effort Normal 08/22/23 15:40 Blood Pressure 190/71 H 08/22/23 15:37 Blood Pressure Position Sitting 08/22/23 15:37 Pulse Oximetry 98 08/22/23 15:37 Oxygen Delivery Method Room Air 08/22/23 15:37 Oxygen Flow Rate 0 08/22/23 15:37 Pain Level 8 08/22/23 15:37
--- NOTE | 2023-08-22 16:10 | DI.RAD_ITS ---
Exam(s) XR HIP RT COMPLETE AP PELVIS EXAM: XR HIP RT COMPLETE AP PELVIS CLINICAL HISTORY: right hip pain post fall. TECHNIQUE: 2D digital imaging was performed. COMPARISON: No exams were available for comparison FINDINGS: 3 views No evidence of pelvic nor hip fracture. Mild hip joint space narrowing. No prominent degenerative c hanges. IMPRESSION: No fractures evident. DATA REPOSITORY: RADIATION DOSE DELIVERED:
[2023-08-22] MEDS: Ketorolac 15 MG/ML VIAL IM (16:11)
[2023-08-22] MEDS: Acetaminophen 500 MG TAB 1000 MG PO (16:11)
== END 2023-08-22 18:29 | disposition home or self-care (01) ==
PROVIDERS: Emergency Provider Student in an Organized Health Care Education/Training Program; PCP Nurse Practitioner
DX: M54.9 Dorsalgia, unspecified (principal); S22.089A Unspecified fracture of T11-T12 vertebra, initial encounter for closed fracture; W01.0XXA Fall on same level from slipping, tripping and stumbling without subsequent striking against object, initial encounter; I10 Essential (primary) hypertension; M25.551 Pain in right hip; Z79.899 Other long term (current) drug therapy; Z88.2 Allergy status to sulfonamides
CPT/HCPCS: 96372; 99285; 72128; 72131; 73502; 99284; J1885

== ENCOUNTER → 2023-08-23 09:12 | Outpatient (BNVA) | payer MEDICARE, OTHER, SELFPAY | PROVIDERS: PCP Nurse Practitioner; Referring Provider Nurse Practitioner; Visit Provider Surgery | DX: Z12.11 Encounter for screening for malignant neoplasm of colon (principal); Z80.0 Family history of malignant neoplasm of digestive organs ==

== ENCOUNTER → 2023-09-11 08:50 | Outpatient (BNVA) | payer MEDICARE, OTHER, SELFPAY | PROVIDERS: PCP Nurse Practitioner; Visit Provider Urology | DX: C67.9 Malignant neoplasm of bladder, unspecified (principal); R35.0 Frequency of micturition; R35.1 Nocturia | CPT/HCPCS: 52000; 81003 ==

== ENCOUNTER 2023-09-11 09:16 | Outpatient (REF) | payer MEDICARE, OTHER, SELFPAY ==
--- NOTE | 2023-09-11 09:15 | PAPNONF_PTH ---
PATIENT: Clover Mendez I LOC: [facility] U#:[id number] AGE/SX: 88/F ROOM: RE09/11/[address]: José Garza MD : [id number] BED: DIS: 09/11/2023 SPEC #: [id number] RECD: 09/11/23 13:05 STATUS: RUBÉN REIris #: [id number] RAYNE: 09/11/23 09:[address]: José Garza DEPT: [facility] Cytology RECD BY: Melissa Herndon ENTERED: 09/11/23 13:06 SP TYPE: RODRIGUEZ GRAF DR: Jasmine Lorenzana APRN Tissues: 1 - BODY FLUID CYTO(SPUTUM/URINE)[facility] Procedures: BODY FLUID CYTO(URINE/SPUTUM) Comments: [id number] (TV = 70 ml, 30 ml CYTOLYT ADDED) (REFRIGERATED)
== END 2023-09-11 09:17 | disposition home or self-care (01) ==
LOC: LBN 09:16
PROVIDERS: PCP Nurse Practitioner; Visit Provider Urology
DX: C67.9 Malignant neoplasm of bladder, unspecified (principal)
CPT/HCPCS: 88104

== ENCOUNTER → 2023-11-22 08:42 | Outpatient (BNVA) | payer MEDICARE, OTHER, SELFPAY | PROVIDERS: PCP Nurse Practitioner; Referring Provider Nurse Practitioner; Visit Provider Surgery | DX: Z12.11 Encounter for screening for malignant neoplasm of colon (principal); Z80.0 Family history of malignant neoplasm of digestive organs ==

== ENCOUNTER 2024-08-04 02:49 | Outpatient (CLI) | payer MEDICARE, OTHER, SELFPAY ==
[2024-08-04 08:41] LABS: ALT 28 U/L (14-59); AST 24 U/L (15-37); Alkaline Phosphatase 65 U/L (46-116); Anion Gap 9.3 mmol/L (3-11); BUN 14 mg/dL (7-18); Bilirubin, Total 0.59 mg/dL (0.2-1.0); CO2 29.7 mmol/L (21.0-32.0); CREATININE 0.9 mg/dL (0.55-1.02); Calcium 9.6 mg/dL (8.5-10.1); Calculated LDL 147 mg/dL (<100); Chloride 99 mmol/L (98-107); Cholesterol 257 mg/dL (<200); Estimated GFR 61.87 (mL/min/1.73m2); Glucose 107 mg/dL (74-106); HDL Cholesterol 72 mg/dL (40-60); Potassium 4.2 mmol/L (3.5-5.1); Sodium 138 mmol/L (136-145); Total Protein 7.2 g/dL (6.4-8.2); Triglyceride 191 mg/dL (<150)
== END 2024-08-04 02:50 | disposition home or self-care (01) ==
LOC: LBO 02:49
PROVIDERS: PCP Nurse Practitioner; Referring Provider Nurse Practitioner; Visit Provider Nurse Practitioner
DX: I10 Essential (primary) hypertension (principal)
CPT/HCPCS: 36415; 80053; 80061

== ENCOUNTER → 2024-09-09 08:31 | Outpatient (BNVA) | payer MEDICARE, OTHER, SELFPAY | PROVIDERS: PCP Nurse Practitioner; Visit Provider Urology | DX: C67.9 Malignant neoplasm of bladder, unspecified (principal); R35.1 Nocturia | CPT/HCPCS: 52000; 81003 ==

== ENCOUNTER 2025-01-13 09:35 | Emergency (ER) | payer MEDICARE, OTHER, SELFPAY ==
[2025-01-13 09:37] VITALS: BP 211/78; PULSE 76; RESP 15; O2SAT 98
--- NOTE | 2025-01-13 09:45 | DI.CT_ITS ---
Exam(s) CT THORACIC LUMBAR SPINE WO EXAM: CT THORACIC LUMBAR SPINE WO CLINICAL HISTORY: hx T11 fx, worsening pain. TECHNIQUE: Imaging Protocol: Axial computed tomography images with coronal and sagittal reformatted images were created and reviewed. COMPARISON: CT CT THORACIC LUMBAR SPINE WO from 08/22/2023 FINDINGS: Bones: There is a nondisplaced fracture of the posterior medial aspect of the left 12th rib. There i s also cortical deformity seen in the medial aspect of the left 9th rib. There is been continued com pression of the T11 fracture. There is loss of 60 percent of the height of the vertebral body anteri silverio. There is retropulsion into the spinal canal. The AP diameter measures 8.3 mm at this level co mpared to 1.4 cm at the T10 level. Multilevel degenerative changes are seen throughout the thoracic spine. The alignment of the spine is normal including the cervicothoracic junction and the thoracolu mbar junction. The bones are osteopenic. Soft tissues: The soft tissues are unremarkable. No large disk herniations are identified. IMPRESSION: 1. Acute nondisplaced fractures involving the medial aspects of the left 9th and 12th ribs. 2. Further compression of the T11 vertebral body fracture with loss of 60 percent height of the verte bral body anteriorly. There is retropulsion into the spinal canal with an AP diameter measuring 8.3 mm at this level. 3. No acute fractures or subluxations are seen in the lumbar spine. RADIATION DOSE DELIVERED: 1,231.52mGy.cm Total DLP DATA REPOSITORY: All CT scans at this facility are submitted to the National Radiology Data Registry (NRDR) Dose Index Registry (DIR) with the [employer] (ACR). RADIATION OPTIMIZATION: All CT scans at this facility use at least one of these dose optimization te chniques: automated exposure control; mA and/or kV adjustment per patient size (includes targeted exa ms where dose is matched to clinical indication); or iterative reconstruction.
--- NOTE | 2025-01-13 09:59 | W.ED.GENAD ---
Discharge Plan Disposition Patient Disposition: Home Condition: Stable Discharge Details Clinical Impression: Left rib fracture, Compression fracture of T11 vertebra, Osteoporosis Primary Care Provider: Jasmine Lorenzana ED Provider: Ashley Yung Home Meds and New Rx's Prescriptions: No Action Metamucil 3.4 gram/5.4 gram powder 1 tbsp PO DAILY Rx Instructions: mix into at least 8 oz of water or juice before administering simvastatin 40 mg tablet 40 mg PO HS Qty: 90 4RF Rx Instructions: take a whole pill every evening lisinopril 20 mg tablet 20 mg PO DAILY Qty: 90 4RF Rx Instructions: 1 TAB DAILY ibuprofen [Advil] 200 mg tablet 200 mg PO BID PRN magnesium oxide 400 mg magnesium tablet 400 mg PO BID multivitamin [Daily Multi-Vitamin] 1 EACH tablet 1 ea PO DAILY calcium carbonate-vitamin D3 [Calcium 600 with Vitamin D3] 1 EACH tablet 1 ea PO DAILY garlic 1,000 MG capsule 500 mg PO DAILY amlodipine 2.5 mg tablet 2.5 mg PO DAILY Qty: 90 3RF Discharge Instructions Instructions: Rib Fracture or Bruised Rib ED Additional Instructions: You were seen in the emergency department today for evaluation of left-sided back pain and were found to have 2 new rib fractures in your ninth and 12th rib on the left side. Additionally, we noted that the compression fracture at T11 that you have had since 2022 has increased in size. You received Tylenol as the initial medication for management of your pain and were able to take deep breaths with your incentive spirometry device. For rib fractures, it is important that we manage your pain so that you can continue to take these deep breaths. Please use Tylenol, 650 to 1000 mg every 6-8 hours. You can alternate that with ibuprofen, 600 mg, every 6-8 hours. You should continue to use your topical lidocaine cream, and should use the incentive spirometer 2-3 times in a row, at least 4 times per day. Most people do this during a television commercial break or other period of rest. Please hold a pillow against your left side if you need to cough, and return to the emergency department immediately if you have fever, shortness of breath, cough, or other concerns. You need to call your primary care provider to schedule a follow-up visit for both your rib fractures as well as the skin lesion that we evaluated. Thank you for allowing us to be part of your care. Discharge Data Discharge Date/Time-TO BE ENTERED AT DEPARTURE: 01/13/25 11:48 HPI General Mode of arrival: ambulatory. Date/Time Provider Initiated Documentation: 01/13/25 09:46. Limitations to Documentation: no limitations. Information obtained by: patient, family and old records reviewed. HPI Narrative: HPI: This is an 89-year-old female patient with a past medical history significant for osteoporosis, hyperlipidemia, hypertension, and history of compression fracture of T11 in 2022 who is presenting for evaluation of left sided upper back pain. The patient reports that she has been managing the pain from for fracture over the last 2 years with topical lidocaine, but 2 to 3 days ago she noted that an area just left of her upper back seem to catch when she stands up or when she bends over. She has not sustained trauma or injury, but does state that she has traveled quite a bit of heavy snow over the last week or so. The patient reports that the pain does not radiate, feels occasionally sharp and like a muscle is catching, she has used her lidocaine, and takes 200 mg of ibuprofen in the morning and 325 of Tylenol in the evening, feels that this helps somewhat but not entirely. She states that she has not had any associated symptoms such as fever, chills, upper respiratory symptoms, cough, chest pain, abdominal pain. Denies numbness, weakness, or tingling, states that she has had no change in her bowel or bladder habits and specifically denies dysuria, hematuria, or incontinence. Incidentally requested this physician evaluate a lesion on her right lower extremity, a change in the skin that has been present for several years. She notes what looks like a 1 cm patch of dryness on her skin, no significant surrounding redness, states that it seems to be slightly bigger than prior. Exam: Gen: Awake and alert, in no apparent distress HEENT: Non-icteric sclera Neck: Supple Lungs: No apparent respiratory distress, normal respiratory effort. CV: Appears well perfused, strong and symmetrical distal pulses Abdomen: Non-distended MSK: Moves 4 extremities without apparent limitation in ROM. The patient has no tenderness to palpation of the midline T or L-spine, no step-offs. The patient does have focal tenderness just lateral to the mid T-spine, no palpable muscle spasms, no overlying skin changes appreciated. Full range of motion of the spine both rotational and flexion/extension. Skin: Visualized skin without rashes, cyanosis. The patient's medial right calf has a approximately 1 cm flat patch of dry skin change with surrounding swelling without induration, redness, or warmth. The area is mobile, nontender. Neuro: Normal Gait, cranial nerves II through XII intact and symmetrical, 5 out of 5 strength x 4 extremities, no sensory deficits. Psych: Appropriate for situation. MDM: This is an 89-year-old female patient presenting for evaluation of back pain. My differential includes but is not limited to muscular strain, new or worsening compression fracture, certainly considered rib injury. The patient has no red flag symptoms such as fever, neurodeficit, bowel or bladder changes to suggest spinal cord compression due to spinal epidural abscess, spinal hematoma, space-occupying malignancy. The patient has no tearing pain, chest pain, neurodeficits, pulse deficits, or other concerning symptoms to increase my suspicion for aortic pathology such as dissection or aneurysm. No infectious symptoms to suggest pneumonia. The patient is reassuringly neuro intact and hemodynamically appropriate. Given her history of fracture and her change in pain it is prudent to proceed with imaging of her spine, and we will obtain a CT Noncon thoracic and lumbar spine. I will also provide her with a dose of Tylenol for initial symptomatic management. At this time I do not see an indication to proceed with laboratory studies. ED Course: I reviewed the patient's imaging studies, which do show worsening of her T11 compression fracture now with 60% height loss, but her acute finding is nondisplaced rib fractures of #7 and 12 on the left side, potentially having occurred when shoveling snow a few days ago. The patient was reevaluated, her pain is controlled, she was able to pull 1000 mL on her incentive spirometry consistently, and given the lack of displacement and the otherwise reassuring evaluation I do feel that she is appropriate for trial of outpatient management, and extensive counseling was performed regarding pain management, pulmonary hygiene, and outpatient follow-up. We also discussed return precautions to include shortness of breath, fever, chest pain. At this time, the patient has had a full medical evaluation and is safe for discharge to home. They are hemodynamically stable, ambulatory, and tolerating PO. They are understanding of the follow-up plan and return precautions. They left our facility without incident. Ashley Yung MD Related Data Home Medications ?Medication ?Instructions ?Recorded ?Confirmed calcium 600 mg (as 1 ea PO DAILY 11/25/13 01/13/25 carbonate)-vitamin D3 5 mcg (200 unit) tablet (Calcium 600 with Vitamin D3) multivitamin (Daily Multi-Vitamin 1 ea PO DAILY 11/25/13 01/13/25 tablet) garlic 1,000 mg capsule 500 mg PO DAILY 08/27/14 01/13/25 ibuprofen 200 mg tablet (Advil) 200 mg PO BID PRN 02/07/22 01/13/25 psyllium husk 3.4 gram/5.4 gram 1 tbsp PO DAILY 08/23/23 01/13/25 oral powder (Metamucil) magnesium oxide 400 mg PO BID 09/11/23 01/13/25 amlodipine 2.5 mg tablet 2.5 mg PO DAILY #90 tabs 07/01/24 01/13/25 lisinopril 20 mg tablet 20 mg PO DAILY #90 tab-caps 08/11/24 01/13/25 simvastatin 40 mg tablet 40 mg PO HS #90 tab-caps 08/11/24 01/13/25 Previous Rx's ?Medication ?Instructions ?Recorded amlodipine 2.5 mg tablet 2.5 mg PO DAILY #90 tabs 07/01/24 lisinopril 20 mg tablet 20 mg PO DAILY #90 tab-caps 08/11/24 simvastatin 40 mg tablet 40 mg PO HS #90 tab-caps 08/11/24 Allergies Allergy/AdvReac Type Severity Reaction Status Date / Time Sulfa (Sulfonamide Allergy Severe RASH ALL Verified 01/13/25 09:42 Antibiotics) OVER BODY General Stated Complaint: Nk/Back Pain KIRSTEN: 4 Course Vital Signs Vital signs: Vital Signs Pulse 76 01/13/25 09:37 Respiratory Rate 15 01/13/25 09:37 Blood Pressure 211/78 H 01/13/25 09:37 Pulse Oximetry 98 01/13/25 09:37 Pulse 76 01/13/25 09:37 Respiratory Rate 15 01/13/25 09:37 Blood Pressure 211/78 H 01/13/25 09:37 Pulse Oximetry 98 01/13/25 09:37 Pain Level 8 01/13/25 09:37 Medical Decision Making Quality:SDOH Health Related Social Needs: No Data to Display PFSH All Active Problems (Updated 01/13/25 @ 11:23 by Ashley Yung MD) Compression fracture of T11 vertebra (Acute) Left rib fracture (Acute) Impacted cerumen, right ear (Acute) Conductive hearing loss in left ear (Acute) Acute serous otitis media, left ear (Acute) Osteoporosis (Chronic) Asymmetrical sensorineural hearing loss (Acute) Obstipation (Acute) Hyperlipidemia (Acute) Traumatic tear of right rotator cuff (Acute 10/20/21) Dislocation of right shoulder joint (Acute 10/20/21) Benign paroxysmal positional vertigo of left ear (Acute) Vertigo (Acute) 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 KEYANA CERVANTES; TUBULAR ADENOMA family h/o colon ca Hemorrhoid Hypertension Ganglion cyst of wrist Actinic keratosis, hx of Osteoarthritis Colon polyps Hearing loss Surgical History History of bladder surgery 06/2021 Dr. Garza Hysterectomy, Laproscopic (~1977) Hemorrhoidal Banding (02/05/18) Colonoscopy - MAC (02/05/18) Colonoscopy - IV Sedation 2006; NEG 2012; TUBULAR ADENOMA Family History Mother , OLD AGE at age 82. Heart disease Father , OLD AGE at age 84. Heart disease Sister Neoplasm KIDNEY Sister Neoplasm COLON Sister No problems noted. Sister Essential hypertension Neoplasm Sister Hyperlipidemia Sister Hyperlipidemia Brother Acute type B viral hepatitis Essential hypertension Brother , ACCIDENTAL at age 13. No problems noted. Brother , SUICIDE at age 70. Depression Sister Diabetes Social History Smoking/Tobacco Use Status: Never Smoking risk assessment performed?: Yes Alcohol Intake: never Drug use: Never Substance use type: does not use Household members: spouse Housing: house Number of Children: 0 current occupation: [employer] Pets and animals: No Current gender identity: female What is your relationship status?: Panel score (0-1 are the most socially isolated patients): 1 What type of physical activity do you participate in: walking Duration: 45-60 minutes/day Frequency: daily Summer/Religious: Quaker Special summer needs: No Seatbelt use: always Working smoke detector in home: Yes Fire extinguisher in home: Yes Carbon monox detector in home: Yes Do you feel safe at home: Yes Do you feel safe in your relationship?: Yes Additional Social history: Spouse in room
[2025-01-13] MEDS: Acetaminophen 500 MG TAB 1000 MG PO (10:10)
[2025-01-13 11:46] VITALS: BP 145/71; PULSE 77; RESP 18; O2SAT 97
== END 2025-01-13 11:48 | disposition home or self-care (01) ==
PROVIDERS: Emergency Provider Emergency Medicine; PCP Nurse Practitioner
DX: S22.42XA Multiple fractures of ribs, left side, initial encounter for closed fracture (principal); M48.54XA Collapsed vertebra, not elsewhere classified, thoracic region, initial encounter for fracture; I10 Essential (primary) hypertension; E78.5 Hyperlipidemia, unspecified; M81.0 Age-related osteoporosis without current pathological fracture; X58.XXXA Exposure to other specified factors, initial encounter
CPT/HCPCS: 99284; 72128; 72131

== ENCOUNTER 2025-02-19 08:37 | Outpatient (CLI) | payer MEDICARE, OTHER, SELFPAY ==
--- NOTE | 2025-02-19 08:30 | DI.DEXA_ITS ---
Exam(s) XR DEXA BONE DENSITY W/WO SOLE EXAM: XR DEXA BONE DENSITY W/WO SOLE CLINICAL HISTORY: spontaneous rib fracture,osteoporosis, pathologic fx,m81.0 TECHNIQUE: [employer] C densitometer analysis of left hip, lumbar spine and left forearm. Lat eral survey image of the thoracic and lumbar spine. COMPARISON: 2002 through 2007 FINDINGS: Lateral view of the thoracic and lumbar spine shows a moderate to severe compression fracture of T12. Bone mineral density measurements of the lumbar spine correspond to a total T-score of -2.8, in the osteoporotic range. This represents a 9.8 percent decrease compared with 2007 and 4.2 percent increa se decreased when compared with 2002. Bone mineral density measurements of the left hip correspond to a total T-score of negative 1.4. Thi s represents a 17.0 percent decrease from 2007 in the 11.4 percent decrease from 2002. . The femora l neck T-score is -1.7, in the osteopenic range.. Theleft forearm bone mineral density measurements correspond to a T-score of the distal 3rd of -3.4, in the osteoporotic range. Forearm was not analyzed on the previous exams.. IMPRESSION: Osteoporosis of the forearm and spine. Osteopenia of the hip.
== END 2025-02-19 08:57 ==
LOC: DI 08:38
PROVIDERS: PCP Nurse Practitioner; Visit Provider Emergency Medicine
DX: M81.0 Age-related osteoporosis without current pathological fracture (principal); S22.080D Wedge compression fracture of T11-T12 vertebra, subsequent encounter for fracture with routine healing; X58.XXXD Exposure to other specified factors, subsequent encounter
CPT/HCPCS: 77080

== ENCOUNTER 2025-02-26 10:12 | Outpatient (CLI) | payer MEDICARE, OTHER, SELFPAY ==
[2025-02-26 10:32] LABS: HCT 41.8 % (36.0-46.0); HGB 14.4 g/dL (11.2-15.7); MCHC 34.4 % (32.0-36.0); MCV 93 fL (80-95); MPV 10.2 fL (8.0-11.0); Platelet Count 227 10^3/uL (130-400); RDW 12.2 % (11.7-14.6); RDW-SD 41.9 fL; WBC 7.15 10^3/uL (4.4-10.8)
[2025-02-26 10:59] LABS: ALT 34 U/L (14-59); AST 24 U/L (15-37); Albumin 4.4 g/dL (3.4-5.0); Alkaline Phosphatase 65 U/L (46-116); Anion Gap 9.4 mmol/L (3-11); BUN 24 mg/dL (7-18); Bilirubin, Total 0.5 mg/dL (0.2-1.0); CO2 28.6 mmol/L (21.0-32.0); Calcium 9.9 mg/dL (8.5-10.1); Chloride 99 mmol/L (98-107); Estimated GFR 54.53 (mL/min/1.73m2); Glucose 100 mg/dL (74-106); Potassium 4.3 mmol/L (3.5-5.1); Sodium 137 mmol/L (136-145); Total Protein 7.4 g/dL (6.4-8.2)
[2025-02-26 11:00] LABS: C-Reactive Protein < 0.50 mg/dL (<or=0.5)
[2025-02-26 11:32] LABS: Vitamin D 25 Total 47 ng/mL (30-100)
[2025-02-26 19:14] LABS: Parathyroid Hormone,Intact 46 pg/mL (19-88)
== END 2025-02-26 10:13 | disposition home or self-care (01) ==
LOC: LBO 10:13
PROVIDERS: PCP Nurse Practitioner; Visit Provider Emergency Medicine
DX: M81.0 Age-related osteoporosis without current pathological fracture (principal); M84.40XA Pathological fracture, unspecified site, initial encounter for fracture
CPT/HCPCS: 36415; 80053; 82306; 85027; 83970; 86140

== ENCOUNTER 2025-06-15 02:10 | Outpatient (CLI) | payer MEDICARE, OTHER, SELFPAY ==
--- NOTE | 2025-06-15 07:15 | DI.MAMMO_ITS ---
Exam(s) MAMMO SCREENING EXAM: MAMMO SCREENING CLINICAL HISTORY: screening,z12.39 TECHNIQUE: Mammograms were interpreted according to the usual protocol including computer analysis with CAD system, tomosynthesis and C-view imaging. COMPARISON: 2015 through 2022 FINDINGS: The breasts are composed of scattered fibroglandular densities, Breast Density category B. No suspicious masses or suspicious microcalcifications are seen. No skin thickening or abnormal axillary lymph nodes are seen. There has been no significant change from prior exams. IMPRESSION: BI-RADS Category 1, Negative mammogram Yearly screening mammography is recommended. Breast Density - Category B - There are scattered areas of fibroglandular density. Breast density Category C or D implies that the patient has dense breast tissue. Dense breast tissue can make it harder to find cancer on a mammogram. Dense breast tissue is also associated with an increased risk of breast cancer. This information about the result of the mammogram report was provided to the patient to raise their awareness. Use this report when you speak with the patient about their risks for breast cancer, which includes their family history. At that time, you may recommend additional screening tests (Ultrasound or MRI) as these tests may add significant information. A negative radiographic report should not delay biopsy if a dominant or clinically suspicious mass is present. Up to ten percent of cancers are not identified on mammography. A negative report may reinforce clinical impression. Adenosis and dense breasts may obscure an underlying neoplasm. False positive reports average 6 to 10%. Patient will receive a letter notifying them of these results.
== END 2025-06-15 02:30 ==
PROVIDERS: PCP Family Medicine; Visit Provider Family Medicine
DX: Z12.31 Encounter for screening mammogram for malignant neoplasm of breast (principal); R92.323 Mammographic fibroglandular density, bilateral breasts
CPT/HCPCS: 77063; 77067

== ENCOUNTER 2025-06-20 10:18 | Outpatient (CLI) | payer MEDICARE, OTHER, SELFPAY ==
--- NOTE | 2025-06-20 10:15 | RT.EKG_ITS ---
APPROVED REPORT Exam: Resting ECG Reason for Exam: hypertension Patient Location: O HR:70 bpm ECG Measurements Heart Rate 70 AXIS ND 151 P 57 QRSd 110 QRS 39 QT 404 T 33 QTc 436 Conclusion Sinus rhythm...normal P axis, V-rate 50- 99 Probable left atrial enlargement...P >50mS, <-0.10mV V1 Baseline wander in lead(s) V2 Otherwise normal ECG
== END 2025-06-20 10:19 | disposition home or self-care (01) ==
LOC: DI.CM 10:19
PROVIDERS: PCP Nurse Practitioner; Visit Provider Nurse Practitioner Family
DX: I10 Essential (primary) hypertension (principal); I51.7 Cardiomegaly
CPT/HCPCS: 93010

== ENCOUNTER 2025-08-12 08:10 | Outpatient (CLI) | payer MEDICARE, OTHER, SELFPAY ==
[2025-08-12 09:39] LABS: Calculated LDL 114 mg/dL (<100); Cholesterol 229 mg/dL (<200); HDL Cholesterol 62 mg/dL (>or=50); Triglyceride 268 mg/dL (<150)
== END 2025-08-12 08:11 | disposition home or self-care (01) ==
LOC: LBO 08:10
PROVIDERS: PCP Nurse Practitioner; Visit Provider Family Medicine
DX: E78.00 Pure hypercholesterolemia, unspecified (principal); Z13.220 Encounter for screening for lipoid disorders
CPT/HCPCS: 36415; 80061

== ENCOUNTER → 2025-09-08 08:33 | Outpatient (BNVA) | payer MEDICARE, OTHER, SELFPAY | PROVIDERS: Visit Provider Urology | DX: C67.9 Malignant neoplasm of bladder, unspecified (principal); R31.9 Hematuria, unspecified; R35.1 Nocturia | CPT/HCPCS: 81002; 52000 ==

== ENCOUNTER 2025-09-08 10:02 | Outpatient (REF) | payer MEDICARE, OTHER, SELFPAY ==
--- NOTE | 2025-09-08 09:20 | PAPNONF_PTH ---
PATIENT: Clover Mendez I LOC: [facility] U#:[id number] AGE/SX: 89/F ROOM: RE09/08/[address]: José Garza MD : [id number] BED: DIS: 09/08/2025 SPEC #: [id number] RECD: 09/08/25 12:37 STATUS: RUBÉN HUI #: [id number] RAYNE: 09/08/25 09:[address]: José Garza DEPT: [facility] Cytology RECD BY: Melissa Herndon ENTERED: 09/08/25 12:37 SP TYPE: RODRIGUEZ GRAF DR: Reinier Valinete Tissues: 1 - BODY FLUID CYTO(SPUTUM/URINE)[facility] Procedures: BODY FLUID CYTO(URINE/SPUTUM) Comments: [id number] (TV = 50 ml, 30 ml CYTOLYT ADDED) (REFRIGERATED)
== END 2025-09-08 10:03 | disposition home or self-care (01) ==
LOC: LBN 10:02
PROVIDERS: Visit Provider Urology
DX: C67.9 Malignant neoplasm of bladder, unspecified (principal)
CPT/HCPCS: 88104